=== PATIENT | male | born 1980 | race Caucasian/White ===

== ENCOUNTER 2016-06-26 00:08 | Emergency (ER) | payer SELFPAY ==
[~2016-06-26] VITALS: Ht 170.2 cm; Wt 65.2 kg
[2016-06-26] MEDS ORDERED: ED- ACETAMINOHEN/CODEINE 300MG/30 MG (TYLENOL #3) 6 TABLETS/BTL PO ONE (00:45)
[2016-06-26] MEDS ORDERED: CEPHALEXIN 500 MG (KEFLEX) CAPSULE PO ONE (00:50)
[2016-06-26 01:02] VITALS: BP 115/78
== END 2016-06-26 00:55 | disposition home or self-care (01) ==
LOC: ED 00:09
DX: L02.413 Cutaneous abscess of right upper limb (principal)
CPT/HCPCS: 10060; 87070; 87075; 99283

== ENCOUNTER 2016-07-02 20:29 | Observation (INO) | payer SELFPAY ==
[~2016-07-02] VITALS: Ht 170.2 cm; Wt 65.0 kg
[2016-07-02] MEDS ORDERED: SODIUM CHLORIDE FLUSH 3 ML SYR IV PRN (21:10)
[2016-07-02] MEDS ORDERED: SODIUM CHLORIDE FLUSH 10 ML SYR IV PRN (21:10)
[2016-07-02 21:29] LABS: BASOPHILS % (AUTO) 0 % (0-2); EOSINOPHILS # (AUTO) 0.2 10^3uL; EOSINOPHILS % (AUTO) 1 % (0-4); LYMPHOCYTES # (AUTO) 2.5 X10^3; MEAN CORPUSCULAR HEMOGLOBIN 30.5 PG (26.0-34.0); MEAN CORPUSCULAR VOLUME 82 FL (80-100); MEAN PLATELET VOLUME 11.1 FL (6.0-9.5); MONOCYTES % (AUTO) 8 % (3-11); NEUTROPHILS # (AUTO) 9.2 X10^3; NEUTROPHILS % (AUTO) 71 % (51-67); PLATELET COUNT 367 10^3uL (150-450); WHITE BLOOD COUNT 12.85 10^3uL (4.0-11.0)
--- NOTE | 2016-07-02 21:40 | NUR ---
Patient refuses any IV fluids or meds unless he can something to "fucking eat". Dr. Niño informed and goes in to talk with patient.
[2016-07-02 21:42] LABS: ANION GAP 14.5 MEQ/L (3-15); MEAN CORPUSCULAR HGB CONC 37.3 g/dL (31.0-37.0)
[2016-07-02 21:43] LABS: ALBUMIN 4.4 g/dL (3.4-5.0); CALCULATED IONIZED CALCIUM 3.9 mg/dL (3.8-4.6); TOTAL PROTEIN 8.3 g/dL (6.4-8.5)
--- NOTE | 2016-07-02 21:50 | NUR ---
Patient has agreed to IVF if provided with food. Dr. Renay granado pt having food. [employer] notified and will bring [employer] [employer].
--- NOTE | 2016-07-02 21:54 | NUR ---
Pt care now assumed by Norman Zapata RN
--- NOTE | 2016-07-02 22:30 | NUR ---
Pt. arrives to the Med Surg floor via wheelchair accompanied by ER/RN. Pt. is alert; orientated; conversational. NS infusing at right forearm without difficulty; resp are even and unlabored on room air. Admission process continues.
--- NOTE | 2016-07-02 22:33 | NUR ---
Pt unable to urinate before being transferred [facility]. Notified his nurse on Med/SurgMaria E.
--- NOTE | 2016-07-02 22:40 | NUR ---
Accucheck taken: 564.
--- NOTE | 2016-07-02 22:50 | NUR ---
Dr. Sloan here to see pt. Pt. states he "just didn't want to deal with it" when asked why he hasn't been taking his insulin. Pt. reports Jun.12 as the last time he used meth. Pt. becomes agitated when the subject of food is brought up; "If I'm not going to get food-then I'm leaving!" Pt. cussing and voice becoming louder; reassurance given. "I will walk if I get hungry and can't get food!" Physician leaves room to allow pt. to calm down.
--- NOTE | 2016-07-02 23:00 | NUR ---
Aunt arrives from ER; pt. justinesing; reassurance given by this nurse and Aunt.
[2016-07-02] MEDS ORDERED: DEXTROSE 50% 25 GM/50 ML SYRINGE IV PRN ×2 (23:10)
[2016-07-02] MEDS ORDERED: ACETAMINOPHEN 325 MG TAB (TYLENOL) PO PRN (23:10)
[2016-07-02] MEDS ORDERED: ONDANSETRON 4 MG (ZOFRAN) ORAL DISSOLVE TAB PO PRN (23:10)
[2016-07-02] MEDS ORDERED: POTASSIUM CL IVPB 50 ML IV PRN (23:10)
[2016-07-02] MEDS ORDERED: GLUCAGON EMERGENCY 1 MG/KIT IM PRN (23:10)
[2016-07-02] MEDS: INSULIN LISPRO 1 UNIT/0.01 ML (HUMALOG) DOSE SC SCH (23:10)
[2016-07-02] MEDS ORDERED: POLYETHYLENE GLYCOL 17 GM (MIRALAX) PACKET PO PRN (23:10)
[2016-07-02] MEDS ORDERED: DEXTROSE ORAL GEL (GLUTOSE 40%) 15 GM TUBE PO PRN (23:10)
[2016-07-02] MEDS ORDERED: INSULIN LISPRO 1 UNIT/0.01 ML (HUMALOG) DOSE SC ONE ×2 (23:15→23:17)
--- NOTE | 2016-07-02 23:15 | NUR ---
NS bolus currently infusing at right forearm without difficulty.
--- NOTE | 2016-07-02 23:20 | NUR ---
Humalog 10 units given per physician order. Pt. watching tv; appears calmer.
--- NOTE | 2016-07-02 23:35 | NUR ---
UA obtained and taken downstairs to lab.
[2016-07-02 23:36] LABS: BILIRUBIN,URINE Negative (Negative); CLARITY,URINE Clear; COLOR,URINE Yellow; GLUCOSE, URINE (UA) 3+ (Negative); LEUKOCYTE ESTERASE ,URINE Negative (Negative); UROBILINOGEN,URINE 0.2 mg/dL (0.2-1.0)
--- NOTE | 2016-07-02 23:45 | NUR ---
Pt. becoming calmer; given much reassurance.
--- NOTE | 2016-07-02 23:46 | NUR ---
Nicotine patch applied to left upper arm/21 mg; pt. requests patch applied tonight and not in the A.M. Yellow gown and socks on for safety; telemetry applied at this time.
[2016-07-03] VITALS (7 sets, daily range): BP systolic 108–127; BP diastolic 67–82
[2016-07-03 00:23] LABS: AMPHETAMINE SCREEN, URINE Positive (Negative); CANNABINOID SCREEN, URINE Negative (Negative); METHAMPHETAMINE SCREEN URINE S POSITIVE (NEGATIVE); OPIATE SCREEN URINE Negative (Negative); PROPOXYPHENE STAT NEGATIVE (NEGATIVE)
[2016-07-03 00:27] LABS: MAGNESIUM* 1.6 mg/dL (1.6-2.3); PHOSPHORUS 4.5 mg/dL (2.4-4.9)
--- NOTE | 2016-07-03 00:30 | NUR ---
Accucheck taken: 552.
[2016-07-03] MEDS ORDERED: INSULIN LISPRO 1 UNIT/0.01 ML (HUMALOG) DOSE SC ONE ×5 (00:45→14:25)
--- NOTE | 2016-07-03 00:50 | NUR ---
Humalog 12 units given; pt. resting soundly on right side; resp are even and unlabored on room air; NS infusing at 250 cc's without difficulty; appears to be in no distress.
--- NOTE | 2016-07-03 01:10 | NUR ---
Tylenol 650 mg PO given for pain. Pt. agitated; "This won't do a damn bit of good-nobody listens to me-I take this at home and it doesn't do anything". Pt.'s statement punctuated with cuss words.
--- NOTE | 2016-07-03 01:15 | NUR ---
Pt. yelling; hollering obscenities; "I'm leaving right now if I don't get food!" Inspector Hairspring/Sarai in room to take AMA papers to pt. Pt. reads AMA papers then throws clipboard across the room. Pt. then lays back down; cussing continually; states "Nobody is doing anything for me around here!"
--- NOTE | 2016-07-03 02:15 | NUR ---
Ibuprofen 600 mg PO q [address] ordered by Dr[address] Sloan. Update given on pt. status.
--- NOTE | 2016-07-03 02:20 | NUR ---
Humalog 12 units given for accucheck of 355.
[2016-07-03] MEDS: IBUPROFEN 600 MG (MOTRIN) TAB PO SCH ×2 (02:29→13:05)
--- NOTE | 2016-07-03 02:29 | NUR ---
Ibuprofen 600 mg PO given for right upper arm pain from 'cyst'; rated 8. Pt. continues to ask to eat; cusses; threatens to go home. Much reassurance given by staff and this nurse.
--- NOTE | 2016-07-03 02:36 | NUR ---
IV tubing disconnected as pt. requests to take a shower. IV site covered with plastic wrap; telemetry removed; pt. appears to be somewhat calmer.
--- NOTE | 2016-07-03 02:45 | NUR ---
New orders from Dr. Sloan: When blood glucose is less than 250, give Lantus 20 units. Pt. may then eat diabetic diet one hour later. Check blood glucose every two hours after that until it is less than 250 x 2. Then go to regular schedule and continue sliding scale.
--- NOTE | 2016-07-03 02:55 | NUR ---
Pt. back from shower; IV reconnected & secured with coban; infusing without problems. Pt. appears fatigued; states, "I can't get to sleep here; I want to eat!" Physician orders relayed to pt. for reference. Pt. resting on left side; resp are even and unlabored on room air. Call light within reach.
[2016-07-03] MEDS ORDERED: INSULIN GLARGINE 1 UNIT/0.01ML (LANTUS) DOSE SC ONE (03:10)
--- NOTE | 2016-07-03 03:13 | NUR ---
Lantus 20 units given for glucose level of 214. Pt. wants to eat now; orders explained to pt.; pt. agitated; reassurance given.
[2016-07-03 03:37] LABS: ALBUMIN 3.9 g/dL (3.4-5.0); CALCULATED IONIZED CALCIUM 3.9 mg/dL (3.8-4.6); TOTAL PROTEIN 7.5 g/dL (6.4-8.5)
--- NOTE | 2016-07-03 04:10 | NUR ---
Pt. eating diabetic lunch tray provided by Safety Administrator/Sarai. Pt. cooperative currently.
--- NOTE | 2016-07-03 04:35 | NUR ---
Pt. states, "My anxiety is kicking in!" This nurse checks with ICU for current telemetry: Sinus rhythm in the 70's. HOB elevated since pt. ate large amount of food very quickly; deep breaths encouraged; reassurance given. H2O replenished; call light within reach.
--- NOTE | 2016-07-03 05:08 | NUR ---
Humalog 4 units given for accucheck of 236.
[2016-07-03 06:30] LABS: MAGNESIUM* 1.8 mg/dL (1.6-2.3); PHOSPHORUS 4.3 mg/dL (2.4-4.9)
--- NOTE | 2016-07-03 06:30 | NUR ---
Pt. resting quietly; resp are even and unlabored on room air; IVF infusing at 250 cc/hr; pt. appears to be in no distress. Telemetry reflects sinus rhythm. Call light and H2O within reach.
[2016-07-03] MEDS ORDERED: PANTOPRAZOLE 40 MG (PROTONIX) TAB PO SCH (07:00)
[2016-07-03 07:09] LABS: ALBUMIN 3.1 g/dL (3.4-5.0); TOTAL PROTEIN 6.3 g/dL (6.4-8.5)
[2016-07-03] MEDS: INSULIN LISPRO 1 UNIT/0.01 ML (HUMALOG) DOSE SC SCH ×2 (07:30→11:30)
[2016-07-03] MEDS ORDERED: NICOTINE 21 MG (NICODERM) PATCH TD SCH ×2 (09:00→23:00)
[2016-07-03] MEDS ORDERED: POTASSIUM CHLORIDE ER 20 MEQ TABLET PO ONE (10:00)
[2016-07-03] MEDS ORDERED: MAGNESIUM OXIDE 400 MG (MAG-OX) TAB PO SCH (10:41)
--- NOTE | 2016-07-03 12:33 | NUR ---
SSI SCHEDULE CHANGED TO 2 HR PP & HS, WILL MODIFY ORDER IF DR VÁSQUEZ DOES NOT, THIS WAS CLARIFIED WITH DR. VÁSQUEZ.
--- NOTE | 2016-07-03 14:05 | NUR ---
2 HR PC BS= 455, DR. VÁSQUEZ NOTIFIED, ORDERS 12 UNITS HUMALOG NOW AND TEXT ORDER STS "CAN CHANGE PARAMETERS. GIVE 12u UP TO 500.
--- NOTE | 2016-07-03 14:33 | NUR ---
1400 bs Addendum: 07/03/16 at 1436 by Dede Cordero RN 1400 BS = 455mg/dL, DR. VÁSQUEZ NOTIFIED, ORDER RECEIVED FOR 12 UNITS HUMALOG IF BS UP TO 500. 12 UNITS HUMALOG ADMIN, WILL RE-CHECK IN 1 HOUR.
[2016-07-03 15:57] LABS: ALBUMIN 3.4 g/dL (3.4-5.0); ANION GAP 11.9 MEQ/L (3-15); CALCULATED IONIZED CALCIUM 3.8 mg/dL (3.8-4.6); TOTAL PROTEIN 6.5 g/dL (6.4-8.5)
--- NOTE | 2016-07-03 16:07 | NUR ---
RE-CHECK BS = 391, DR. VÁSQUEZ NOTIFIED, PT STS HE DOES NOT RECALL WHAT HIS SHORT-ACTING INSULIN DOSE WAS AT HOME, THIS WAS REPORTED TO DR. VÁSQUEZ, ORDERS RECEIVED TO GIVE HUMALOG 8 UNITS WITH MEALS AND CONT SSI 2H PC & HS. THIS WAS DISCUSSED WITH DINA IN PHARMACY.
--- NOTE | 2016-07-03 16:30 | NUR ---
THIS NURSE IN TO PT'S ROOM TO ASK IF HE WOULD LIKE TYLENOL FOR CYST PAIN. PT BEGINS YELLING THAT IT WILL NOT HELP AND THAT HE CAN "HURT AT HOME", PT THEN BEGINS YELLING THAT HE IS HE IS HUNGRY & WE ARE NOT FEEDING HIM. THIS NURSE ATTEMPTS TO EDUCATE PT ON RATIONAL FOR NON-NARCOTIC PAIN MEDS AND RATIONAL FOR BLOOD SUGAR CONTROL THRU DIET IN AN ATTEMPT TO DECREASE INSULIN USE; THIS ANGERS PT MORE AND HE BEGINS TO USE PROFANE LANGUAGE AND BECOME RESTLESS IN BED. HE STS HE WANTS TO GET OUT OF HERE AND AGREES TO SIGN THE AMA FORM;WHEN THIS NURSE RETURNS TO ROOM WITH AMA FORM PT STS HE IS WAITING TO HEAR BACK FROM HIS AUNT WHO WILL BE THE ONE TAKING HIM HOME.
[2016-07-03] MEDS ORDERED: INSULIN LISPRO 1 UNIT/0.01 ML (HUMALOG) DOSE SC SCH ×2 (18:00→19:00)
--- NOTE | 2016-07-03 18:05 | NUR ---
PT'S AUNT HERE, WILL WAIT FOR PT'S DECISION.
--- NOTE | 2016-07-03 18:11 | NUR ---
PT C/O CYST ON HIS ARM AND LEGS, STS THEY ARE CAUSING HIM PAIN, PT REFUSING TYLENOL & IBUPROFEN WHEN OFFERED, DR. VÁSQUEZ AWARE, NOTIFIED AGAIN.
--- NOTE | 2016-07-03 18:33 | NUR ---
PT'S AUNT MEETS THIS NURSE IN [facility], STS "HE'S READY TO SIGN THE PAPER", THIS NURSE IN TO ROOM, PT ASKED IF HE WOULD LIKE TO READ THE FORM, HE STS HE READ IT LAST NIGHT AND THAT HE DOES NOT NEED TO READ IT AGAIN, PT INFORMED WE WOULD CONTINUE TO MONITOR & TREAT BLOOD SUGARS, ASKED IF HE WILL BE ABLE TO DO THIS AT HOME, HE STS "YES I WILL". PT'S AUNT STS "HE'S DIABETIC, HE SHOULD BE GETTING WAY MORE THAN SALTINE CRACKERS", THIS NURSE INFORMS AUNT THAT PT HAS RECEIVED 3 FULL MEALS TODAY WELL SNACKS WHICH PT STS HAVE BEEN ONLY CRACKERS, THIS PT GETS ANGRY AND BEGINS TO RAISE HIS VOICE AT THIS TIME, THIS NURSE INFORMED AUNT PT HAS RECEIVED MORE THAN CRACKERS FOR SNACKS AND SHE STS "YES BUT HIS SUGARS HAVE BEEN GOING UP AND DOWN AND THEY SHOULDN'T", THIS NURSE CLARIFIES THAT IT IS NORMAL FOR BLOOD SUGARS TO GO UP & DOWN UNTIL BLOOD SUGAR LEVELS ARE IN CONTROL AND THAT STAYING IN THE HOSPITAL ALLOWS MONITORING & TREATING OF BLOOD SUGARS. PT DECLINES ASSIST/ESCORT, DECLINES W/C.
--- NOTE | 2016-07-03 18:44 | NUR ---
PT DEPARTS DEPT AMB, ACCOMPANIED BY AUNT, PTIS WEARING HIS OWN CLOTHING AND HAS HIS CELL PHONE & SHIFT SUPERVISOR MELTING WHICH ARE HIS ONLY BELONGINGS.
[2016-07-03] MEDS ORDERED: INSULIN GLARGINE 1 UNIT/0.01ML (LANTUS) DOSE SC SCH ×2 (21:00)
[2016-07-03] MEDS ORDERED: NICOTINE PATCH REMOVAL TOP SCH (22:59)
== END 2016-07-03 18:45 | disposition left against medical advice (07) ==
LOC: ED 20:30 → INTOOBSV 22:05 → MED/SURG 22:05
PROVIDERS: ADMIT Pediatrics; ATTEND Pediatrics
DX: E10.65 Type 1 diabetes mellitus with hyperglycemia (principal); E86.0 Dehydration; R11.0 Nausea; D72.829 Elevated white blood cell count, unspecified; E87.6 Hypokalemia; E83.42 Hypomagnesemia; F15.10 Other stimulant abuse, uncomplicated; E72.51 Non-ketotic hyperglycinemia; I25.10 Atherosclerotic heart disease of native coronary artery without angina pectoris; Z91.14 Patient's other noncompliance with medication regimen; Z86.14 Personal history of Methicillin resistant Staphylococcus aureus infection; F17.200 Nicotine dependence, unspecified, uncomplicated
CPT/HCPCS: 36415; 80053; 80307; 81003; 82150; 83036; 83690; 83735; 83930; 84100; 85025; 96360; 99283; J1815; J7030

== ENCOUNTER 2016-07-27 04:33 | Emergency (ER) | payer SELFPAY ==
[~2016-07-27] VITALS: Ht 170.2 cm; Wt 64.3 kg
[2016-07-27] MEDS ORDERED: HYDROcodone/APAP 5 MG/325 MG (NORCO) TAB PO ONE (05:00)
[2016-07-27] MEDS ORDERED: CLINDAMYCIN 150 MG (CLEOCIN) CAP PO ONE (05:00)
--- NOTE | 2016-07-27 05:10 | NUR ---
LIST OF DENTAL CLINIC (LOW COST) GIVEN TO PT
--- NOTE | 2016-07-27 05:11 | NUR ---
PAIN REASMT ON LORTAB NOT DONE PT LEFT PRIOR TO ASMT TIME DUE
[2016-07-27 05:16] VITALS: BP 132/87
== END 2016-07-27 05:17 | disposition home or self-care (01) ==
LOC: ED 04:34
DX: K02.9 Dental caries, unspecified (principal)
CPT/HCPCS: 99282; 99283

== ENCOUNTER 2016-08-07 20:40 | Emergency (ER) | payer SELFPAY ==
[~2016-08-07] VITALS: Ht 170.2 cm; Wt 68.0 kg
[~2016-08-07 20:40] MED LIST: ACET1TAB43 PO; ACHYD1T PO; CEPH-331 PO; CEPH-507 PO; CLIN-78 PO; CLIN-79 PO; HUM100VI12 SC; HYDR-33 PO; HYDR-3702 PO; HYDR-3811 PO; IBP200T PO; INSU100V13 IJ; INSU100V2 SC; INSU100V8 SC; KETO10TA PO; LD5PT TOP; MPR22TI TOP; NPH SQ; SULF1TAB35 PO; SYRI-259 MC; TESTSTRIPS MC
--- OUTSIDE RECORDS SUMMARY | 2016-08-07 20:46 | XMS REPORT | Continuity of Care Document ---
Author Author Becka Jovel Address Unknown Phone Unavailable Care Team Providers Care Director Of Safety Name Role Phone [employer] Unavailable Unavailable Problems Problem Status Onset Date Classification Date Reported Comments Source No data available for this section Problem 01/11/2015 [facility] Medications Medication Details Route Status Patient Instructions Ordering Provider Order Date Source No Known Medications No known medications Active [facility] Allergies, Adverse Reactions, Alerts Substance Category Reaction Severity Reaction type Status Date Reported Comments Source [facility]. Immunizations Immunization Date Given Site Status Last Updated Comments Source No data available for this section No data available for this section [facility] Results Order Name Results Value Reference Range Date Interpretation Comments Source ED Note - Provider ED Note - Provider Patient: KARIN JAMES Age: 34 years Sex: Male : [birth year] Associated Diagnoses: None Author: Nate Rivera Basic Information History source: Patient. Additional information: Chief Complaint from Nursing Triage Note : Chief Complaint 01/13/15 15:55 Chief Complaint Pt c/o migrane CID x several days. . History of Present Illness Pt is a 34 year old male with a history of DMI who presents with headache x2 weeks. Pt stated headache is bilateral and occipita radiating into the neck. It has been gradual in onset and constant, currently rated a 10/10 pain. Pt complains of photophobia and phonophobia. No history of contacts with similar symptoms, stated tried ibuprofen with minimal relief. Review of Systems Constitutional symptoms: No fever, no chills. Skin symptoms: No jaundice, no rash. Eye symptoms: No recent vision problems, no pain. ENMT symptoms: No sore throat, no nasal congestion. Respiratory symptoms: No shortness of breath, no cough. Cardiovascular symptoms: No chest pain, no palpitations. Gastrointestinal symptoms: No abdominal pain, no nausea, no vomiting, no diarrhea, no constipation. Genitourinary symptoms: No dysuria, no discharge. Musculoskeletal symptoms: No back pain, Neurologic symptoms: Headache, dizziness. Health Status Allergies: Allergic Reactions (Selected) Severity Not Documented Amoxicillin- No reactions were documented. Penicillins- No reactions were documented. TraMADol- No reactions were documented.. Medications: (Selected) Prescriptions Prescribed ED ONLY ibuprofen 800 mg oral tablet: 1 tab, PO, TID, With food, 20 tab, 0 Refill(s) ED ONLY ibuprofen 800 mg oral tablet: 1 tab, PO, TID, With food, 20 tab, 0 Refill(s) Novolin N human recombinant 100 unit(s)/ml subcutaneous injection: 20 Units, 0.2 mL, Subcutaneous, BIDAC, 12 mL, 5 Refill(s) Novolin R human recombinant 100 unit(s)/ml injectable injection: 15 Units, 0.15 mL, Subcutaneous, TIDAC, 13.5 mL, 5 Refill(s). Past Medical/ Family/ Social History Medical history Endocrine: diabetes type 1. Surgical history: Appendectomy. Family history: Not relevant to the current condition. Social history: Pt admits to half pack a day tobacco use Denies etoh, illicit drug use.. Problem list: All Problems History of insulin dependent diabetes mellitus / SNOMED CT 169716602 / Confirmed Hx of appendectomy / SNOMED CT 5680826224 / Confirmed Overweight / ICD-9-CM 278.02 / Confirmed Added based on documentation of BMI=25.2. Pancreatitis / SNOMED CT 200364573 / Confirmed. Physical Examination Vital Signs Vital Signs 01/13/15 15:55 Temperature Route Oral Temperature Oral 98.1 DegF Heart Rate 69 bpm Resp. Rate 20 BRMIN Systolic BP 122 mmHg Diastolic BP 75 mmHg Oxygen Saturation 97 % Oxygen Therapy Room air . Weights and Measurements 01/13/15 15:55 Weight 73 kg Height 170 cm Body Mass Index 25.3 kg/m2 Weight Obtained Stated Weight . Oxygen Saturation 01/13/15 15:55 Oxygen Saturation 97 % . General: Alert, no acute distress. Skin: Warm, dry, pink. Head: Normocephalic, atraumatic. Neck: Supple, trachea midline. Eye: Pupils are equal, round and reactive to light, extraocular movements are intact, normal conjunctiva. Ears, nose, mouth and throat: Oral mucosa moist, no pharyngeal erythema or exudate. Cardiovascular: Regular rate and rhythm, No murmur, Normal peripheral perfusion , No edema. Respiratory: Lungs are clear to auscultation, respirations are non-labored, breath sounds are equal, Symmetrical chest wall expansion. Gastrointestinal: Soft, Nontender, Non distended, Normal bowel sounds. Neurological: Alert and oriented to person, place, time, and situation, No focal neurological deficit observed, CN II-XII intact, normal sensory observed, normal motor observed, normal speech observed, normal coordination observed. Medical Decision Making Orders Launch Order Profile (pull in existing orders) (Selected) Inpatient Orders Ordered Compazine: 10 mg, 2 mL, IVPush, ONCE Normal Saline bolus: 1,000 mL, 4000 ml/hr, IVPB, ONCE Toradol: 30 mg, 1 mL, IVPush, ONCE diphenhydramine: 50 mg, 1 mL, IVPush, ONCE. Reexamination/ Reevaluation Time: 01/13/15 17:15:00 . Vital signs results included from flowsheet : Vital Signs 01/13/15 17:09 Heart Rate 78 bpm Resp. Rate 18 BRMIN Systolic BP 121 mmHg Diastolic BP 76 mmHg Mean Arterial Pressure 91 mmHg Oxygen Saturation 98 % Oxygen Therapy Room air Notes: Pt headache has resolved. Discussed plan to DC and stressed importance of follow up with PCP. Impression and Plan Diagnosis Headache 784.0 (ICD9 784.0) Plan Condition: Stable. Disposition: Discharged: ED Discharge(01/13/15 17:54:00, Home), to home. Patient was given the following educational materials: Migraine Headache. Follow up with: Follow up with primary care provider Within 1 week You were seen in the emergency department for a headache. Your headache was controlled on IV medications and it is likely that your headache is a migraine headache. It is important for you to follow up with a primary care provider regarding your headaches so that that can be controlled. Please follow up within a week. Please return to the emergency department if You have a fever. You have vision loss. You have muscular weakness or loss of muscle control. You start losing your balance or have trouble walking. You feel faint or pass out. You have severe symptoms that are different from your first symptoms. . Counseled: Patient, Regarding diagnosis, Regarding diagnostic results, Regarding treatment plan, Regarding prescription, Patient indicated understanding of instructions. Attending Attestation Teaching-Supervisory Addendum I participated in the following activities of this patient's care: the medical history, the physical exam, medical decision making. I personally performed: supervision of the patient's care, the medical history, the physical exam, the medical decision making. The case was discussed with: the resident. Results interpretation: I agree with the study interpretation in this patient's care, I agree with the documentation of the study interpretation. Attending HPI persistent headache for 2 weeks. gradual onset bilat, frontal. no fever, n/v/ d. endorses photophobia, no trouble with speech gait. long standing history of migraines. [facility]. no chronic migraine meds. Attending Physical Exam Vital Signs Vital Signs 01/13/15 15:55 Temperature Route Oral Temperature Oral 98.1 DegF Heart Rate 69 bpm Resp. Rate 20 BRMIN Systolic BP 122 mmHg Diastolic BP 75 mmHg Oxygen Saturation 97 % Oxygen Therapy Room air . Weights and Measurements 01/13/15 15:55 Weight 73 kg Height 170 cm Body Mass Index 25.3 kg/m2 Weight Obtained Stated Weight . Oxygen Saturation 01/13/15 15:55 Oxygen Saturation 97 % . General: Alert, no acute distress, speaks loud, moves about cart in no distress.. Skin: Warm, dry, no rash. Head: Normocephalic, atraumatic. Neck: Supple, trachea midline, no tenderness, no JVD. Eye: Pupils are equal, round and reactive to light, extraocular movements are intact, normal conjunctiva. Ears, nose, mouth and throat: Oral mucosa moist. Cardiovascular: Regular rate and rhythm, No murmur, Normal peripheral perfusion , No edema. Respiratory: Lungs are clear to auscultation, respirations are non-labored, breath sounds are equal, Symmetrical chest wall expansion. Gastrointestinal: Soft, Nontender. Back: Nontender, no step-offs. Musculoskeletal: No swelling, no deformity. Neurological: Alert and oriented to person, place, time, and situation, No focal neurological deficit observed, CN II-XII intact, normal sensory observed, normal motor observed, normal speech observed, normal coordination observed. Lymphatics: No lymphadenopathy. Attending Medical Decision Making Differential Diagnosis: discussed treatment and won't give narcotics to go with. has apparent ultram allergy, so ibuprofen and tylenol only. Attending Impression and Plan migraine headache Plan: return precautions, need to establish pcp discussed 01/13/2015 [facility] XR Hand 3 View Right [id number] XR Hand 3 View Right [id number] Name: KARIN JAMES Diagnostic Radiology Accession Number Exam Exam Date/Time Ordering Physician [id number] XR Hand 3 View Right 01/11/2015 20:23 CDT Yoan Hazel CPT code 59140 Reason For Exam (XR Hand 3 View Right) hand pain Report XR Hand 3 View Right [id number] Reason for exam: hand pain Comparison: None. Technique: 3 views of the right hand. Findings: No acute fracture. The joint spaces are maintained. Soft tissues are unremarkable. Impression: No acute fracture. Dr. Ced Blas and the staff radiologist have jointly reviewed and interpreted the above examination. Final Report Dictating Physician: Ced Blas Resident Physician: Ced Blas ELECTRONIC SIGNATURE Signed: 01.12.2015 08:42 Signed by: Sachin Cano M.D. Technologist: Mayra Condon(R)(CT),Pooja Rivers Erich 01/11/2015 [facility] XR Knee 3 Views Right [id number] XR Knee 3 Views Right [id number] Name: KARIN JAMES Diagnostic Radiology Accession Number Exam Exam Date/Time Ordering Physician [id number] XR Knee 3 Views Right 01/11/2015 20:23 CDT Yoan Hazel CPT code 10519 Reason For Exam (XR Knee 3 Views Right) knee pain Report Study: XR Knee 3 Views Right [id number] Reason for exam: knee pain Comparison: None. Technique: 3 views of the right knee were obtained. Findings: No acute fracture or dislocation. No radiopaque foreign bodies. Impression: No acute osseous abnormalities. Dr. Ced Blas and the staff radiologist have jointly reviewed and interpreted the above examination. Final Report Dictating Physician: Ced Blas Resident Physician: Ced Blas ELECTRONIC SIGNATURE Signed: 01.12.2015 08:42 Signed by: Sachin Cano M.D. Technologist: Mayra Condon RT(R)(CT),Pooja Rivers 01/11/2015 [facility] ED Note - Provider ED Note - Provider Patient: KARIN JAMES Age: 34 years Sex: Male : [birth year] Associated Diagnoses: None Author: Yoan Hazel Basic Information History source: Patient. Additional information: Chief Complaint from Nursing Triage Note : Chief Complaint 01/11/15 13:41 Chief Complaint pt states he lost his footing while going to lunch at [employer]. c/o right knee pain and right wrist pain. pulse/motor/sensation present. pt states he's only here ' because the staff made me come.' . History of Present Illness Mr Laura is a 34 yo male who presents from [facility] after a fall, going up the stairs and describes a mechanical fall vs knee. He states he fell on his right hand. Denies LOC, hitting head, or injury to other part of body. He is complaing of right knee and right hand pain. He denies being able to bear weight on his leg since the fall. Pt denies any numbness, tinglining in the hand or leg. Pt states he has had nothing for pain since the injury. Review of Systems Constitutional symptoms: No fever, no chills. Skin symptoms: Negative except as documented in HPI. Eye symptoms: Negative except as documented in HPI. ENMT symptoms: No sore throat, no nasal congestion. Respiratory symptoms: No shortness of breath, Cardiovascular symptoms: No chest pain, Gastrointestinal symptoms: No nausea, no vomiting. Genitourinary symptoms: Negative except as documented in HPI. Musculoskeletal symptoms: Negative except as documented in HPI. Neurologic symptoms: Headache, chronic migraines. Psychiatric symptoms: Negative except as documented in HPI. Health Status Allergies: Allergic Reactions (Selected) Severity Not Documented Amoxicillin- No reactions were documented. Penicillins- No reactions were documented. TraMADol- No reactions were documented.. Medications: (Selected) Prescriptions Prescribed ED ONLY ibuprofen 800 mg oral tablet: 1 tab, PO, TID, With food, 20 tab, 0 Refill(s) Novolin N human recombinant 100 unit(s)/ml subcutaneous injection: 20 Units, 0.2 mL, Subcutaneous, BIDAC, 12 mL, 5 Refill(s) Novolin R human recombinant 100 unit(s)/ml injectable injection: 15 Units, 0.15 mL, Subcutaneous, TIDAC, 13.5 mL, 5 Refill(s). Past Medical/ Family/ Social History Medical history Cardiovascular: no hypertension. Endocrine: diabetes type 1. Surgical history: Appendectomy, prior right thumb ext tendon repair. Social history: 4 cigs/day, denies drug or alcohol.. Physical Examination Vital Signs Vital Signs 01/11/15 13:41 Temperature Route Oral Temperature Oral 98.2 DegF Heart Rate 89 bpm Resp. Rate 16 BRMIN Systolic BP 133 mmHg Diastolic BP 72 mmHg Oxygen Saturation 97 % Oxygen Therapy Room air . General: Alert, no acute distress. Skin: Intact, normal for ethnicity. Head: Normocephalic, atraumatic. Neck: No tenderness. Eye: Normal conjunctiva. Ears, nose, mouth and throat: Oral mucosa moist. Cardiovascular: Regular rate and rhythm, No murmur. Respiratory: Lungs are clear to auscultation, respirations are non-labored. Gastrointestinal: Soft, Nontender, Non distended. Musculoskeletal: Normal ROM, normal strength, no swelling, no deformity, hand. snuff box tenderness. A/PROM and sensory intact., Lower extremity: Right, knee, tenderness, range of motion (normal, active, passive), neg lochmans, no swelling , no erythema, no deformity. Neurological: Alert and oriented to person, place, time, and situation, No focal neurological deficit observed. Medical Decision Making Documents reviewed: Emergency department records. Orders Launch Orders Pharmacy: [place] 325 mg-5 mg oral tablet (Order): 2 tab, PO, ONCE Radiology: XR Hand 3 View Right [id number] (Order): Stat, 01/11/15 20:10, hand pain, ED Location ed29, scaphoid view. XR Knee 3 Views Right [id number] (Order): Stat, 01/11/15 20:10, knee pain, ED Location ed29. Knee x-ray findings Within normal findings, no fracture. Radiology results: X-ray, right hand, interpretation: no acute fracture. Reexamination/ Reevaluation Time: 01/11/15 22:12:00 . Interventions: PowerOrders Patient Care: Wrist Splint Application (Order): 01/11/15 22:13, place thumb spica please . Time: 01/11/15 23:32:00 . Assessment: Attempted to page ortho resident (4 times in past 1.25 hrs without a response). Will place ortho follow up order and have patient call ortho clinic. ED return precautions in. Pt placed in splint. CMS intact. ibuprofen given for pain. . Interventions: PowerOrders Pharmacy: ibuprofen (Order): 800 mg, PO, ONCE Non-Net Orders: Clinic Consult Ortho ER Follow Up HH (Order): 01/11/2015, snuffbox tenderness, Future Order, Crystal Yueng Impression and Plan Knee pain (ICD9 719.46) Pain, wrist (ICD9 719.43) Plan Condition: Stable. Disposition: Discharged: ED Discharge(01/11/15 23:46:00, Home). Prescriptions: Med List/Prescriptions (Selected) Prescriptions Prescribe ED ONLY ibuprofen 800 mg oral tablet: 1 tab, PO, TID, With food, 20 tab, 0 Refill(s) . Patient was given the following educational materials: Knee Pain, Jupu-na-Hefd, Wrist Splint. Follow up with: [facility] You were seen in the ED for evaluation of knee and hand pain. There were no acute fractures however your hand was placed in a brace and needs to stay in this brace until you follow up with the orthopedic doctors in the next week or 2. You need to call the orthopedic clinic if you do not hear from them by tuesday of next week. You can take ibuprofen as needed for pain. Please see the instructions for splint care. Please return to the ED with an y new or worrisome symptoms. , [facility] You were seen in the ED for evaluation of knee and hand pain. There were no acute fractures however your hand was placed in a brace and needs to stay in this brace until you follow up with the orthopedic doctors in the next week or 2. You need to call the orthopedic clinic if you do not hear from them by tuesday of next week. You can take ibuprofen as needed for pain. Please see the instructions for splint care. Please return to the ED with an y new or worrisome symptoms.. Counseled: Patient, Regarding diagnosis, Regarding diagnostic results, Regarding treatment plan, Patient indicated understanding of instructions. Attending Attestation Teaching-Supervisory Addendum I participated in the following activities of this patient's care: the medical history, the physical exam, medical decision making. I personally performed: supervision of the patient's care, the medical history, the physical exam, the medical decision making. The case was discussed with: the resident. Resident documentation: I agree with the resident's documentation. Results interpretation: I agree with the study interpretation in this patient's care. Attending signature: Crystal Yeung 01/11/2015 [facility] Consultation Consultation Patient: KARIN JAMES Age: 34 years Sex: Male : [birth year] Associated Diagnoses: None Author: Destin Martinez Subjective C/o generalised weakness for 1 week. Patient is a known Type 1 Diabetic for the last 3 years,on therapy with Humalin-R 15U TIDAC and Humalin-N 20U BID.He ran out of his Insulin about 3 days ago and has not been using any anti- diabetic medications since.He complains of generalised weakness and polyuria for the last few days.Also mentions burning sensation and tingling in b/l feet for the last 1 week.No fever/visual disturbances/SOA. He was initially doagnosed with T1DM by a doctor [facility] at [facility] but has not followed up with him since September-October.He last filled his prescription in November at a clinic in [place], [place]. His average blood sugar levels with the above mentioned regime are 160-170. He does not remember his last HbA1c. Health Status Allergies: Allergic Reactions (Selected) Severity Not Documented Amoxicillin- No reactions were documented. Penicillins- No reactions were documented. TraMADol- No reactions were documented. Current medications: (Selected) Inpatient Medications Ordered Novolin N: 20 Units, 0.2 mL, Subcutaneous, BIDAC Novolin R: 15 Units, 0.15 mL, Subcutaneous, TIDAC Prescriptions Prescribed Novolin N human recombinant 100 unit(s)/ml subcutaneous injection: 20 Units, 0.2 mL, Subcutaneous, BIDAC, 12 mL, 5 Refill(s) Novolin R human recombinant 100 unit(s)/ml injectable injection: 15 Units, 0.15 mL, Subcutaneous, TIDAC, 13.5 mL, 5 Refill(s) Objective VS/Measurements Vitals Signs (last 24 hrs) Last Charted Minimum Maximum Temp 97.6 (JAN 09 23:31) 97.6 (JAN 09 23:31) 97.7 (JAN 09 17:26) SBP 132 (JAN 09 23:31) 132 (JAN 09 23:31) 135 ( JAN 09 17:26) DBP 76 (JAN 09 23:31) 76 (JAN 09 23:31) 79 (JAN 09 17:26) General: Alert and oriented.No pallor, icterus or edema Respiratory: Bilateral clear breath sounds heard Cardiovascular: S1 S2 heard.No murmurs Abdomen: Mild epigastric tenderness on palpation. No organomegaly/distension Neurological: Normal Sensory and Motor ex.Normal Power and tone. DTRs WNL. Results Review Last Vital Signs 01/09/15 23:32:12 Heart Rate 60 bpm Respiratory Rate 18 BRMIN 97.6 DegF BP Primary () 132/76 BP Optional () / Height 172.5 cm Weight 75 kg BMI 25.2 kg/m2 Last Lab Results BMP: (Date 01/09/15 ) Hematology Tests: (Date) Others: (Date) Lipid Profile: ( Date ) Sodium 131 mmol/L Hgb () TSH () Triglycerides Potassium 4.1 mmol/L HgbA1C () CPK () Cholesterol Phosphorus WBC () AST 11 /ALT 15 (01/09/15) HDL Magnesium PLT () Tropinin () LDL Creatinine 0.79 mg/dL INR () Albumin 4.3 (01/09/15) BUN 14 mg/dL Ur MAB/Cr () CrCl 129.49 ml/min Impression and Plan 1. Type 1 Diabetes Mellitus: - BS in ED>500 - Not been on insulin therapy for last 3 days - Will prescribe home Insulin regimen - Novolin-R 15U TIDAC - Novolin-N 20U BID - Patient advised to f/u with PCP his week. - Counselled on medicine compliance and diet Destin Martinez Internal Medicine PGY1 01/10/2015 [facility] ED Note - Provider ED Note - Provider Patient: KARIN JAMES Age: 34 years Sex: Male : [birth year] Associated Diagnoses: None Author: Nick Rhodes Basic Information History source: Patient. Arrival mode: Walking. History limitation: None. Additional information: Chief Complaint from Nursing Triage Note : Chief Complaint 01/09/15 17:26 Chief Complaint PT REPORTS HEAD PAIN. UPPER ABD PAIN. DIZZINESS. HAS BEEN WITHOUT INSULIN FOR 1 WEEK. . History of Present Illness 34 yo M presents with concern for generalized fatigue and weakness. He states that he is a IDDM and has been out of his insulin for 5 days. He reports continued problem with his chronic headaches - which he was seen here for yesterday, but did not tell the medical team at that time that he was a diabetic. Reports feeling progressive fatigue for the last two days. Normally takes 15 units with meals and 20 units of his long-acting BID. Reports nausea but no vomiting. No neuro or vision changes. Pt also has h/o pancreatitis and reports having chronic abdominal pain that is at his baseline at this time. Review of Systems Constitutional symptoms: No fever, no chills, no sweats, no weakness, no fatigue. Skin symptoms: No rash, no abrasions. Eye symptoms: No recent vision problems, no blurred vision. ENMT symptoms: No sore throat, no nasal congestion. Respiratory symptoms: No shortness of breath, no cough, no hemoptysis. Cardiovascular symptoms: No chest pain, no palpitations. Gastrointestinal symptoms: Negative except as documented in HPI. Genitourinary symptoms: No dysuria, no hematuria. Neurologic symptoms: No headache, no dizziness, no altered level of consciousness, no numbness, no tingling. Psychiatric symptoms: No anxiety, no depression. Hematologic/Lymphatic symptoms: Bleeding tendency negative, Additional review of systems information: All other systems reviewed and otherwise negative. Health Status Allergies: Allergic Reactions (Selected) Severity Not Documented Amoxicillin- No reactions were documented. Penicillins- No reactions were documented. TraMADol- No reactions were documented.. Past Medical/ Family/ Social History Medical history Endocrine: diabetes type 1. Gastrointestinal: pancreatitis. Neurological: migraine. Surgical history: Appendectomy. Family history: denies significant FHx. Social history: +tobacco. Denies etoh or illicit drug use.. Physical Examination Vital Signs Vital Signs 01/09/15 17:26 Temperature Route Oral Temperature Oral 97.7 DegF Heart Rate 76 bpm Resp. Rate 17 BRMIN Systolic BP 135 mmHg Diastolic BP 79 mmHg Oxygen Saturation 97 % Oxygen Therapy Room air 01/08/15 05:41 Temperature Oral 97.5 DegF Heart Rate 52 bpm LOW Resp. Rate 18 BRMIN Systolic BP 128 mmHg Diastolic BP 78 mmHg Mean Arterial Pressure 95 mmHg Oxygen Saturation 96 % Oxygen Therapy Room air . Weights and Measurements 01/09/15 17:26 Weight 75 kg Height 172.5 cm Body Mass Index 25.2 kg/m2 Weight Obtained Stated Weight . Oxygen Saturation 01/09/15 17:26 Oxygen Saturation 97 % 01/08/15 05:41 Oxygen Saturation 96 % . General: Alert, no acute distress. Skin: Warm, dry, intact. Head: Normocephalic, atraumatic. Neck: Supple, trachea midline. Eye: Pupils are equal, round and reactive to light, extraocular movements are intact, normal conjunctiva. Ears, nose, mouth and throat: Oral mucosa moist, no pharyngeal erythema or exudate. Cardiovascular: Regular rate and rhythm, No murmur. Respiratory: Lungs are clear to auscultation, respirations are non-labored, breath sounds are equal, Symmetrical chest wall expansion. Gastrointestinal: Soft, Non distended, Normal bowel sounds, Tenderness: Mild, epigastric, Guarding: Negative, Rebound: Negative. Musculoskeletal: Normal ROM, no tenderness, no swelling, no deformity. Neurological: Alert and oriented to person, place, time, and situation, No focal neurological deficit observed, CN II-XII intact, normal speech observed, Coordination: Bilateral, normal. Medical Decision Making Documents reviewed: Emergency department nurses' notes, emergency department records, prior records. Orders Launch Orders Laboratory: BMP (Order): Stat, 01/09/15 18:29, Blood, Nurse Collect, Launch Orders Pharmacy: Sodium Chloride 0.9% (Normal Saline bolus) (Modify): 2,000 mL, 8,000 ml/hr, IVPB , ONCE, Launch Orders Laboratory: Add On Lab (Order): Blood Routine, RT, 01/09/15 18:50, No Credit, 01/09/15 18: 51 Nick Rhodes, SR Log-in, [id number], Hold Until Collected, OE_DEFAULT_ FROM_FORM, 01/09/15 18:51, Liver Panel, Lipase level Pharmacy: morphine (Order): 5 mg, IVPush, ONCE, Launch Order Profile (pull in existing orders) (Selected) Inpatient Orders Ordered IV Peripheral Insertion: POC Glucose: POC UA: . Results review: Lab results : All Laboratory 01/09/15 22:16 Glucose POC 294 mg/dL SD 01/09/15 18:47 Sodium 131 mmol/L LOW Potassium 4.1 mmol/L Chloride 88 mmol/L LOW CO2 25 mmol/L Anion Gap 18 mmol/L Glucose 508 mg/dL CRIT BUN 14 mg/dL Creatinine 0.79 mg/dL LOW BUN/Creat Ratio 17.7 GFR -Swazi >90 mL/min/1.73m2 GFR Non -Swazi >90 mL/min/1.73m2 Calcium 9.9 mg/dL Osmo (Calc) 295 mOsm/kg Total Protein 7.7 g/dL Albumin 4.3 g/dL Globulin 3.4 g/dL HI Albumin/Globulin Ratio 1.3 Bilirubin Total 0.3 mg/dL Bilirubin Direct <0.2 mg/dL Bilirubin Indirect >0.1 mg/dL Alkaline Phosphatase 108 U/L HI AST 11 U/L LOW ALT 15 U/L Lipase 37 units/L 01/09/15 17:57 Urine Color POC Light yellow Urine Clarity POC Clear Urine Specific [place] POC 1.010 Urine pH POC 7.0 Urine Protein POC Negative mg/dL Urine Glucose POC 500 mg/dL Urine Ketones POC Negative mg/dL Urine Bilirubin POC Negative Urine Blood POC Negative Urine Urobilinogen POC 0.2 EU/dL Urine Nitrite POC Negative Urine Leukocyte Esterase POC Negative 01/09/15 17:25 Glucose POC >500 mg/dL CRIT , Lab results : All Laboratory 01/10/15 00:08 Glucose POC 229 mg/dL SD 01/09/15 22:16 Glucose POC 294 mg/dL HI . Reexamination/ Reevaluation Time: 01/09/15 21:57:00 . Interventions: PowerOrders Pharmacy: morphine (Order): 5 mg, IVPush, ONCE, PowerOrders Pharmacy: Sodium Chloride 0.9% (Normal Saline bolus) (Order): 1,000 mL, IVPB, ONCE. Notes: Patient's pain returning.. Time: 01/09/15 22:45:00 . Notes: Case discussed with Medicine RADHA who has agreed to consult and admit.. Time: 01/10/15 00:21:00 . Vital signs results included from flowsheet : Vital Signs 01/09/15 23:31 Temperature Oral 97.6 DegF Heart Rate 60 bpm Resp. Rate 18 BRMIN Systolic BP 132 mmHg Diastolic BP 76 mmHg Mean Arterial Pressure 95 mmHg Oxygen Saturation 95 % Oxygen Therapy Room air Notes: Medicine has seen and evaluated patient and provided prescriptions for insulin for him to take. Will dc home. Pt to f/u with [facility] as o/p. The patient expressed full understanding and is agreeable to this plan. Strict return precautions given.. Impression and Plan Diagnosis Headache 784.0 (ICD9 784.0) Hyperglycemia (ICD9 790.29) Calls-Consults - ED Consult(01/09/15 22:27:00, Internal Medicine). Plan Condition: Improved, Stable. Disposition: Discharged: ED Discharge(01/10/15 00:23:00, Home). Prescriptions: Med List/Prescriptions (Selected) Prescriptions Prescribed Novolin N human recombinant 100 unit(s)/ml subcutaneous injection: 20 Units, 0.2 mL, Subcutaneous, BIDAC, 12 mL, 5 Refill(s) Novolin R human recombinant 100 unit(s)/ml injectable injection: 15 Units, 0.15 mL, Subcutaneous, TIDAC, 13.5 mL, 5 Refill(s). Patient was given the following educational materials: Headache, FAQs, Hyperglycemia, Miak-cp-Udgr. Follow up with: [facility] You were seen here today for your headache and your high blood sugars. Please take the insulin as prescribed the Internal Medicine doctor. Follow-up with [facility] to establish care and return to the ED for any concerns, including but not limited to: chest pain, worsening headaches, vision changes, trouble breathing or other concerns.. Counseled: Patient, Regarding diagnosis, Regarding diagnostic results, Regarding treatment plan, Patient indicated understanding of instructions. Attending Attestation Teaching-Supervisory Addendum I participated in the following activities of this patient's care: the medical history, the physical exam, medical decision making. I personally performed: the medical history, the physical exam. The case was discussed with: the resident. Resident documentation: I agree with the resident's documentation. Results interpretation: I agree with the documentation of the study interpretation. Notes: In brief, this is a 34 yo male here for generalized malaise, fatigue and concern about being out of his insulin for 5 days. [facility] and [facility]. He also still has mild CID, for which he was seen yesterday. Additinally, he has acute on chronic epigastric abd pain that started back up yesterday. vss, nad cv rrr, lung clear, abd soft, + ttp epigstric, norebound, a/p; Accucheck high, will check labs, IVF and reassess.. Attending signature: Mindi Abbasi 01/09/2015 [facility] ED Note - Provider ED Note - Provider Patient: KARIN JAMES Age: 34 years Sex: Male : 84 Associated Diagnoses: None Author: Jackie Gorman Basic Information Additional information: Chief Complaint from Nursing Triage Note : Chief Complaint 01/07/15 20:52 Chief Complaint Chief Complaint . History of Present Illness 34yo male with reported h/o migraines presents c/o headache x5 days. Describes headahce as occipital throbbing pains, associated with photophobia and phonophobia, improves wiht rest. Denies head trauma, fevers, neck pain, N/V. Review of Systems Constitutional symptoms: No fever, no chills. Skin symptoms: No rash, Eye symptoms: No pain, no diplopia, no blurred vision. ENMT symptoms: No ear pain, Respiratory symptoms: No shortness of breath, no cough. Cardiovascular symptoms: No chest pain, Gastrointestinal symptoms: No abdominal pain, no nausea, no vomiting. Genitourinary symptoms: No dysuria, Musculoskeletal symptoms: No back pain, no Muscle pain. Neurologic symptoms: Headache, no dizziness, no altered level of consciousness , no numbness, no tingling, no weakness. Health Status Allergies: Allergic Reactions (Selected) Severity Not Documented Amoxicillin- No reactions were documented. Penicillins- No reactions were documented. TraMADol- No reactions were documented.. Past Medical/ Family/ Social History Medical history Neurological: migraine. Surgical history: Reviewed as documented in chart. Social history: +tobacco, denies ETOH or illicit drugs. Physical Examination Vital Signs Vital Signs 01/07/15 20:52 Temperature Route Oral Temperature Oral 98.2 DegF Heart Rate 86 bpm Resp. Rate 18 BRMIN Systolic BP 118 mmHg Diastolic BP 73 mmHg Oxygen Saturation 96 % Oxygen Therapy Room air . Weights and Measurements 01/07/15 20:52 Weight 68 kg Height 180 cm Body Mass Index 21 kg/m2 Weight Obtained Stated Weight . General: Alert, no acute distress. Skin: Warm, dry. Head: Normocephalic, atraumatic. Neck: Supple, trachea midline. Eye: Pupils are equal, round and reactive to light, extraocular movements are intact, normal conjunctiva. Ears, nose, mouth and throat: Oral mucosa moist, no pharyngeal erythema or exudate. Cardiovascular: Regular rate and rhythm, No murmur. Respiratory: Lungs are clear to auscultation, respirations are non-labored, breath sounds are equal. Chest wall: No tenderness. Musculoskeletal: Normal ROM, normal strength, no tenderness, no swelling, no deformity. Gastrointestinal: Soft, Nontender, Non distended. Neurological: Alert and oriented to person, place, time, and situation, No focal neurological deficit observed. Psychiatric: Cooperative. Medical Decision Making Orders Launch Orders Pharmacy: Toradol (Order): 30 mg, IVPush, ONCE Benadryl (Order): 50 mg, IVPush, ONCE Compazine (Order): 10 mg, IVPush, ONCE. Reexamination/ Reevaluation Time: 01/08/15 03:50:00 . Assessment: Headache improved but still present. Will give Imitrex and another liter of fluids. Time: 01/08/15 05:50:00 . Assessment: Headache much improved. Patient feels well enough for d/c home. Discussed treatment plan and return precautions with pt. All questions answered. Pt voiced agreement with plan. Will d/c home. Impression and Plan Diagnosis Migraine headache 346.90 (ICD9 346.90) Plan Condition: Improved, Stable. Disposition: Discharged: ED Discharge(01/08/15 06:08:00, Home). Patient was given the following educational materials: Headache, FAQs. Follow up with: Follow up with primary care provider You were seen in the ED for a headache. Your headache improved with medications. You are likely suffering from a migraine headache. You should try to rest in a quiet, dark space today. Be sure to drink plenty of water. Take tylenol or ibuprofen as needed for pain. Return to the ED if you have worsening pain, changes in your vision, weakness or numbness, or any new or concerning symptoms. Take care!. Counseled: Patient, Regarding diagnosis, Regarding diagnostic results, Regarding treatment plan, Patient indicated understanding of instructions. Jackie Gorman MD Emergency Medicine, PGY-2 Attending Attestation Teaching-Supervisory Addendum I participated in the following activities of this patient's care: the medical history, the physical exam, medical decision making. I personally performed: supervision of the patient's care, the medical history, the physical exam, the medical decision making. The case was discussed with: the resident: Jackie Gorman Resident documentation: I agree with the resident's documentation. Results interpretation: I agree with the study interpretation in this patient's care. Attending signature: Fran Marie. Attending Medical Decision Making Orders Launch Orders Diagnosis: *Level 3 ED Visit (Prof [id number]) (Order): 1, 01/07/15 20:17, Migraine headache 346.90, 01/08/15 06:17. 01/08/2015 [facility] Vital Signs Encounters Location Location Details Encounter Type Encounter Number Reason For Visit Attending Provider ADM Date DC Date Status Source [facility] [id number] Emergency [id number] DEMETRICE DEVINEBRITTANY 12/29/2013 Active [employer] [id number] Emergency [id number] Diana Junior 05/16/2014 05/16/2014 Active [employer] [id number] Emergency [id number] Pilo Longoria 06/17/2014 Active [employer] [id number] Emergency [id number] Yan Hannah 09/24/2014 09/25/2014 [facility] [id number] Emergency [id number] Yan Hannah 12/31/2014 01/01/2015 Active [employer] [id number] Emergency [id number] Alexx Marquez 01/06/2015 Active [employer] Procedures Procedure Code Date Perfomer Comments Source No data available for this section [employer]. Plan of Care Social History Assessment and Plan Family History Value Date Source Advance Directives Order Name Results Value Date Source
--- OUTSIDE RECORDS SUMMARY | 2016-08-07 20:46 | XMS REPORT | Continuity of Care Document ---
Author Author Becka Jovel Address Unknown Phone Unavailable Care Team Providers Care [employer] Crewmember Name Role Phone [employer] Unavailable Unavailable Problems Problem Status Onset Date Classification Date Reported Comments Source No data available for this section Problem 01/11/2015 [place] [facility] Medications Medication Details Route Status Patient Instructions Ordering Provider Order Date Source No Known Medications No known medications Active [place] [facility] Allergies, Adverse Reactions, Alerts Substance Category Reaction Severity Reaction type Status Date Reported Comments Source penicillins Assertion [facility] Tramadol Assertion seizures Drug allergy [facility]. Immunizations Immunization Date Given Site Status Last Updated Comments Source No data available for this section No data available for this section [facility] Results Order Name Results Value Reference Range [...] insulin dependent diabetes mellitus / SNOMED CT 061679108 / Confirmed Hx of appendectomy / SNOMED CT 3832296051 / Confirmed Overweight / ICD-9-CM 278.02 / Confirmed Added based on documentation of BMI=25.2. Pancreatitis / SNOMED CT 731288172 / Confirmed. Physical Examination Vital Signs Vital [...] precautions, need to establish pcp discussed 01/13/2015 [facility] XR Hand 3 View Right [id number] XR Hand 3 View Right [id number] Name: KARIN JAMES Diagnostic Radiology Accession Number Exam Exam Date/Time Ordering Physician [id number] XR Hand 3 View Right 01/11/2015 20:23 CDT Yoan Hazel CPT code 07203 Reason For Exam (XR Hand 3 View Right) hand pain Report XR Hand 3 View Right [id number] Reason for exam: hand pain Comparison: None. [...] M.D. Technologist: Mayra Condon(R)(CT),Pooja Rivers Erich 01/11/2015 [facility] XR Knee 3 Views Right [id number] XR Knee 3 Views Right [id number] Name: KARIN JAMES Diagnostic Radiology Accession Number Exam Exam Date/Time Ordering Physician [id number] XR Knee 3 Views Right 01/11/2015 20:23 CDT Yoan Hazel CPT code 02245 Reason For Exam (XR Knee 3 Views Right) knee pain Report Study: XR Knee 3 Views Right [id number] Reason for exam: knee pain Comparison: None. [...] M.D. Technologist: Mayra Condon RT(R)(CT),Pooja Rivers 01/11/2015 [facility] ED Note - Provider ED Note - Provider Patient: KARIN JAMES Age: 34 years Sex: Male : [birth year] Associated Diagnoses: None Author: Yoan Hazel Basic Information History source: Patient. Additional information: Chief Complaint from Nursing Triage Note : Chief Complaint 01/11/15 13:41 Chief Complaint pt states he lost his footing while going to lunch at [employer] c/o right knee pain and right wrist pain. pulse/motor/sensation present. pt states he's only here ' because the staff made me come.' . History of Present Illness Mr Laura is a 34 yo male who presents from [facility] [facility] after a fall, going up the stairs [...] Emergency department records. Orders Launch Orders Pharmacy: [facility] 325 mg-5 mg oral tablet (Order): 2 tab, PO, ONCE Radiology: XR Hand 3 View Right [id number] (Order): Stat, 01/11/15 20:10, hand pain, ED Location ed29, scaphoid view. XR Knee 3 Views Right [id number] (Order): Stat, 01/11/15 20:10, knee pain, ED [...] (Order): 01/11/2015, snuffbox tenderness, Future Order, Crystal Yeung Impression and Plan Knee pain (ICD9 719.46) Pain, wrist (ICD9 719.43) Plan Condition: Stable. Disposition: Discharged: ED Discharge(01/11/15 23:46:00, Home). Prescriptions: Med List/Prescriptions (Selected) Prescriptions Prescribe ED ONLY ibuprofen 800 mg oral tablet: 1 tab, PO, TID, With food, 20 tab, 0 Refill(s) . Patient was given the following educational materials: Knee Pain, Jxou-kz-Oifa, Wrist Splint. Follow up with: [facility] You were seen in [...] an y new or worrisome symptoms. , [facility] You were seen in [...] patient's care. Attending signature: Crystal Yeung 01/11/2015 [facility] Consultation Consultation Patient: KARIN JAMES Age: 34 [...] with T1DM by a doctor over at [facility] but has not followed up with him since September-October.He last filled his prescription in November at a clinic in [place], [place]. His average blood sugar levels with [...] diet Destin Martinez Internal Medicine PGY1 01/10/2015 [facility] ED Note - Provider ED Note - [...] 01/09/15 18: 51 Nick Rhodes, SR Log-in, [id number], Hold Until Collected, OE_DEFAULT_ FROM_FORM, 01/09/15 18:51, Liver Panel, Lipase level Pharmacy: morphine (Order): 5 mg, IVPush, ONCE, Launch Order Profile (pull in existing orders) (Selected) Inpatient Orders Ordered IV Peripheral Insertion: POC Glucose: POC UA: . Results review: Lab results : All Laboratory 01/09/15 22:16 Glucose POC 294 mg/dL [place] 01/09/15 18:47 Sodium 131 mmol/L LOW Potassium 4.1 mmol/L Chloride 88 mmol/L LOW CO2 25 mmol/L Anion Gap 18 mmol/L Glucose 508 mg/dL CRIT BUN 14 mg/dL Creatinine 0.79 mg/dL LOW BUN/Creat Ratio 17.7 GFR -Ecuadorean >90 mL/min/1.73m2 GFR Non -Ecuadorean >90 mL/min/1.73m2 Calcium 9.9 mg/dL Osmo (Calc) 295 mOsm/kg Total Protein 7.7 g/dL Albumin 4.3 g/dL Globulin 3.4 g/dL HI Albumin/Globulin Ratio 1.3 Bilirubin Total 0.3 mg/dL Bilirubin Direct <0.2 mg/dL Bilirubin Indirect >0.1 mg/dL Alkaline Phosphatase 108 U/L HI AST 11 U/L LOW ALT 15 U/L Lipase 37 units/L 01/09/15 17:57 Urine Color POC Light yellow Urine Clarity POC Clear Urine Specific [place] POC 1.010 Urine pH POC 7.0 Urine Protein POC Negative mg/dL Urine Glucose POC 500 mg/dL Urine Ketones POC Negative mg/dL Urine Bilirubin POC Negative Urine Blood POC Negative Urine Urobilinogen POC 0.2 EU/dL Urine Nitrite POC Negative Urine Leukocyte Esterase POC Negative 01/09/15 17:25 Glucose POC >500 mg/dL CRIT , Lab results : All Laboratory 01/10/15 00:08 Glucose POC 229 mg/dL [place] 01/09/15 22:16 Glucose POC 294 mg/dL HI [...] the following educational materials: Headache, FAQs, Hyperglycemia, Cvkq-pt-Xhel. Follow up with: [facility] You were seen here today for your headache and your high blood sugars. Please take the insulin as prescribed the Internal Medicine doctor. Follow-up with [facility] to establish care and return to the [...] and reassess.. Attending signature: Mindi Abbasi 01/09/2015 [facility] ED Note - Provider ED Note - [...] Orders Diagnosis: *Level 3 ED Visit (Prof [id number]) (Order): 1, 01/07/15 20:17, Migraine headache 346.90, 01/08/15 06:17. 01/08/2015 [facility] Vital Signs Encounters Location Location Details Encounter Type Encounter Number Reason For Visit Attending Provider ADM Date DC Date Status Source [facility] [id number] Emergency [id number] DEMETRICE DEVINEBRITTANY 12/29/2013 Active [facility] CD:[id number] Emergency [id number] Diana Junior 05/16/2014 05/16/2014 Active [facility] CD:[id number] Emergency [id number] Pilo Longoria 06/17/2014 Active [facility] CD:[id number] Emergency [id number] Yan Hannah 09/24/2014 09/25/2014 Active [employer] CD:[id number] Emergency [id number] Yan Hannah 12/31/2014 01/01/2015 Active [facility] [id number] Emergency [id number] Alexx Marquez 01/06/2015 Active [facility] Procedures Procedure Code Date Perfomer Comments Source No data available for this section [facility] Plan of Care Social History Assessment and Plan Family History Value Date Source Advance Directives Order Name Results Value Date Source
--- NOTE | 2016-08-07 20:54 | NUR ---
PT STATED HE IS SORE AND TIRED AND HE HURST WHEN ASKED WHERE HE IS IN PAIN AT HE SAID HIS HEAD AND MOUTH. SAID HE BROKE OFF A TOOTH ASKED WHICH ONE HE DAID I THINK IP IS THIS ONE AND POINTED TO UPPER LEFT MOLAR AREA RN LOOKED AND DOES NOT SEE ANY NEW BROKE OFF TEETH, HE STILL HAS THE ONE ON LOWER R THAT HE BROKE OFF THE . [facility]
--- NOTE | 2016-08-07 20:56 | NUR ---
STATED DID FINISH CLIAMYACIN ON TUE OR
[2016-08-07 21:44] LABS: BASOPHILS % (AUTO) 0 % (0-2); EOSINOPHILS # (AUTO) 0.1 10^3uL; EOSINOPHILS % (AUTO) 1 % (0-4); LYMPHOCYTES # (AUTO) 2.3 X10^3; MEAN CORPUSCULAR HEMOGLOBIN 29.9 PG (26.0-34.0); MEAN CORPUSCULAR VOLUME 83 FL (80-100); MEAN PLATELET VOLUME 11.2 FL (6.0-9.5); MONOCYTES # (AUTO) 0.6 X10^3; MONOCYTES % (AUTO) 8 % (3-11); NEUTROPHILS # (AUTO) 4.1 X10^3; NEUTROPHILS % (AUTO) 58 % (51-67); PLATELET COUNT 288 10^3uL (150-450); WHITE BLOOD COUNT 7.13 10^3uL (4.0-11.0)
[2016-08-07 21:45] LABS: MEAN CORPUSCULAR HGB CONC 35.9 g/dL (31.0-37.0)
--- NOTE | 2016-08-07 21:49 | NUR ---
PT CUSSING AND SAYING THAT IF WE ARE NOT GOING TO ADMIT HIM HE MAY WELL LEAVE. SAYS ITS NOTHING AGAINST US BUT HIS "FCKN TOOTH HURTS AND IF WE ARE NOT GOING TO ADMIT HIM THEN HE JUST MAY WELL GO HOME" EXPLAINED THAT WE NEEDED TO WAIT ON LAB AND SOON WE HAD THAT THEN THE DR WOULD KNOW MORE. PT SAID FINE I'LL JUST LAY DOWN AND HE DID.
[2016-08-07 21:56] LABS: BILIRUBIN,URINE Negative (Negative); CLARITY,URINE Clear; COLOR,URINE Yellow; GLUCOSE, URINE (UA) 2+ (Negative); LEUKOCYTE ESTERASE ,URINE Negative (Negative); PH,URINE 5.5 (5.0 - 8.0); UROBILINOGEN,URINE 0.2 mg/dL (0.2-1.0)
[2016-08-07 21:56] LABS: ALBUMIN 4.4 g/dL (3.4-5.0); ANION GAP 19.2 MEQ/L (3-15); CALCULATED IONIZED CALCIUM 3.8 mg/dL (3.8-4.6); TOTAL PROTEIN 7.5 g/dL (6.4-8.5)
[2016-08-07 22:06] LABS: AMPHETAMINE SCREEN, URINE Negative (Negative); CANNABINOID SCREEN, URINE Negative (Negative); METHAMPHETAMINE SCREEN URINE S POSITIVE (NEGATIVE); OPIATE SCREEN URINE Negative (Negative); PROPOXYPHENE STAT NEGATIVE (NEGATIVE)
[2016-08-07 22:19] VITALS: BP 139/86
== END 2016-08-07 22:21 | disposition left against medical advice (07) ==
LOC: ED 20:41
DX: R56.9 Unspecified convulsions (principal); E10.65 Type 1 diabetes mellitus with hyperglycemia; Z79.4 Long term (current) use of insulin
CPT/HCPCS: 36415; 80053; 80307; 81003; 85025; 99282

== ENCOUNTER 2016-09-09 19:32 | Emergency (ER) | payer SELFPAY ==
[~2016-09-09] VITALS: Ht 170.2 cm; Wt 70.5 kg
--- OUTSIDE RECORDS SUMMARY | 2016-09-09 19:35 | XMS REPORT | Continuity of Care Document ---
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 Medications Medication Details Route Status Patient Instructions Ordering Provider Order Date Source No Known Medications No known medications Active [facility] [facility]. Allergies, Adverse Reactions, Alerts Substance Category Reaction Severity Reaction type Status Date Reported Comments Source penicillins Assertion Drug allergy [facility]. Tramadol Assertion seizures Drug allergy [facility]. Immunizations Immunization Date Given Site Status Last Updated Comments Source No data available for this section No data available for this section [facility] Results Order Name Results Value Reference Range [...] insulin dependent diabetes mellitus / SNOMED CT 860244713 / Confirmed Hx of appendectomy / SNOMED CT 0305204453 / Confirmed Overweight / ICD-9-CM 278.02 / Confirmed Added based on documentation of BMI=25.2. Pancreatitis / SNOMED CT 132271504 / Confirmed. Physical Examination Vital Signs Vital [...] precautions, need to establish pcp discussed 01/13/2015 [facility] XR Hand 3 View Right [id number] XR Hand 3 View Right [id number] Name: KARIN JAMES Diagnostic Radiology Accession Number Exam Exam Date/Time Ordering Physician [id number] XR Hand 3 View Right 01/11/2015 20:23 CDT Yoan Hazel CPT code 00036 Reason For Exam (XR Hand 3 View Right) hand pain Report XR Hand 3 View Right [id number] Reason for exam: hand pain Comparison: None. [...] M.D. Technologist: Mayra Condon(R)(CT),Pooja Rivers Erich 01/11/2015 [facility] XR Knee 3 Views Right [id number] XR Knee 3 Views Right [id number] Name: KARIN JAMES Diagnostic Radiology Accession Number Exam Exam Date/Time Ordering Physician [id number] XR Knee 3 Views Right 01/11/2015 20:23 CDT Yoan Hazel CPT code 82703 Reason For Exam (XR Knee 3 Views Right) knee pain Report Study: XR Knee 3 Views Right [id number] Reason for exam: knee pain Comparison: None. [...] M.D. Technologist: Mayra Condon RT(R)(CT),Pooja Rivers 01/11/2015 [facility] ED Note - Provider ED Note - Provider Patient: KARIN JAMES Age: 34 years Sex: Male : [birth year] Associated Diagnoses: None Author: Yoan Hazel Basic Information History source: Patient. Additional information: Chief Complaint from Nursing Triage Note : Chief Complaint 01/11/15 13:41 Chief Complaint pt states he lost his footing while going to lunch at [employer]. c/o right knee pain and right wrist pain. pulse/motor/sensation present. pt states he's only here ' because the staff made me come.' . History of Present Illness Mr Laura is a 34 yo male who presents from [facility] after a fall, going up the stairs [...] Emergency department records. Orders Launch Orders Pharmacy: [facility] 325 mg-5 mg oral tablet (Order): 2 tab, PO, ONCE Radiology: XR Hand 3 View Right [id number] (Order): Stat, 01/11/15 20:10, hand pain, ED Location ed29, scaphoid view. XR Knee 3 Views Right [id number] (Order): Stat, 01/11/15 20:10, knee pain, ED [...] given the following educational materials: Knee Pain, Hcgi-ov-Mwux, Wrist Splint. Follow up with: [facility] You were [...] an y new or worrisome symptoms. , [facility] You were [...] patient's care. Attending signature: Crystal Yeung 01/11/2015 [facility] Consultation Consultation Patient: KARIN JAMES Age: [...] with T1DM by a doctor over at [facility] but has not followed up with him since September-October.He last filled his prescription in November at a clinic in [place], [place]. His average blood sugar levels with [...] diet Destin Martinez Internal Medicine PGY1 01/10/2015 [facility] ED Note - Provider ED Note [...] 01/09/15 18: 51 Nick Rhodes, SR Log-in, [id number], Hold Until Collected, OE_DEFAULT_ FROM_FORM, 01/09/15 18:51, Liver Panel, Lipase level Pharmacy: morphine (Order): 5 mg, IVPush, ONCE, Launch Order Profile (pull in existing orders) (Selected) Inpatient Orders Ordered IV Peripheral Insertion: POC Glucose: POC UA: . Results review: Lab results : All Laboratory 01/09/15 22:16 Glucose POC 294 mg/dL NE 01/09/15 18:47 Sodium 131 mmol/L LOW Potassium 4.1 mmol/L Chloride 88 mmol/L LOW CO2 25 mmol/L Anion Gap 18 mmol/L Glucose 508 mg/dL CRIT BUN 14 mg/dL Creatinine 0.79 mg/dL LOW BUN/Creat Ratio 17.7 GFR -Hungarian >90 mL/min/1.73m2 GFR Non -Hungarian >90 mL/min/1.73m2 Calcium 9.9 mg/dL Osmo (Calc) 295 mOsm/kg Total Protein 7.7 g/dL Albumin 4.3 g/dL Globulin 3.4 g/dL HI Albumin/Globulin Ratio 1.3 Bilirubin Total 0.3 mg/dL Bilirubin Direct <0.2 mg/dL Bilirubin Indirect >0.1 mg/dL Alkaline Phosphatase 108 U/L HI AST 11 U/L LOW ALT 15 U/L Lipase 37 units/L 01/09/15 17:57 Urine Color POC Light yellow Urine Clarity POC Clear Urine Specific [place] POC 1.010 Urine pH POC 7.0 Urine Protein POC Negative mg/dL Urine Glucose POC 500 mg/dL Urine Ketones POC Negative mg/dL Urine Bilirubin POC Negative Urine Blood POC Negative Urine Urobilinogen POC 0.2 EU/dL Urine Nitrite POC Negative Urine Leukocyte Esterase POC Negative 01/09/15 17:25 Glucose POC >500 mg/dL CRIT , Lab results : All Laboratory 01/10/15 00:08 Glucose POC 229 mg/dL NE 01/09/15 22:16 Glucose POC 294 mg/dL HI [...] the following educational materials: Headache, FAQs, Hyperglycemia, Bhnq-kh-Jqcm. Follow up with: [facility] You were seen here today for your headache and your high blood sugars. Please take the insulin as prescribed the Internal Medicine doctor. Follow-up with [facility] to establish care and return to the [...] and reassess.. Attending signature: Mindi Abbasi 01/09/2015 [facility] ED Note - Provider ED Note [...] Orders Diagnosis: *Level 3 ED Visit (Prof [id number]) (Order): 1, 01/07/15 20:17, Migraine headache 346.90, 01/08/15 06:17. 01/08/2015 [facility] Vital Signs Encounters Location Location Details Encounter Type Encounter Number Reason For Visit Attending Provider ADM Date DC Date Status Source [facility] CD:[id number] Emergency [id number] DEMETRICE DEVINEBRITTANY 12/29/2013 Active [employer] CD:[id number] Emergency [id number] Diana Junior 05/16/2014 05/16/2014 Active [employer]. [facility] CD:[id number] Emergency [id number] Pilo Longoria 06/17/2014 Active [employer]. [facility] CD:[id number] Emergency [id number] Yan Hannah 09/24/2014 09/25/2014 Active [employer]. [facility] CD:[id number] Emergency [id number] Yan Hannah 12/31/2014 01/01/2015 Active [employer]. [facility] CD:[id number] Emergency [id number] Alexx Marquez 01/06/2015 Active [employer] Procedures Procedure Code Date Perfomer Comments Source No data available for this section [facility]. Plan of Care Social History Assessment and Plan Family History Value Date Source Advance Directives Order Name Results Value Date Source
--- OUTSIDE RECORDS SUMMARY | 2016-09-09 19:36 | XMS REPORT | Continuity of Care Document ---
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 Medications Medication Details Route Status Patient Instructions Ordering Provider Order Date Source No Known Medications No known medications Active [place] [facility]. Allergies, Adverse Reactions, Alerts Substance Category Reaction Severity Reaction type Status Date Reported Comments Source penicillins Assertion Drug allergy [facility] Tramadol Assertion seizures Drug allergy [facility]. Immunizations Immunization Date Given Site Status Last Updated Comments Source No data available for this section No data available for this section [facility] Results Order Name Results Value Reference Range [...] insulin dependent diabetes mellitus / SNOMED CT 052296990 / Confirmed Hx of appendectomy / SNOMED CT 2458957649 / Confirmed Overweight / ICD-9-CM 278.02 / Confirmed Added based on documentation of BMI=25.2. Pancreatitis / SNOMED CT 680259116 / Confirmed. Physical Examination Vital Signs Vital [...] precautions, need to establish pcp discussed 01/13/2015 [facility] XR Hand 3 View Right [id number] XR Hand 3 View Right [id number] Name: KARIN JAMES Diagnostic Radiology Accession Number Exam Exam Date/Time Ordering Physician [id number] XR Hand 3 View Right 01/11/2015 20:23 CDT Yoan Hazel CPT code 15492 Reason For Exam (XR Hand 3 View Right) hand pain Report XR Hand 3 View Right [id number] Reason for exam: hand pain Comparison: None. [...] M.D. Technologist: Mayra Condon(R)(CT),Pooja Rivers Erich 01/11/2015 [facility] XR Knee 3 Views Right [id number] XR Knee 3 Views Right [id number] Name: KARIN JAMES Diagnostic Radiology Accession Number Exam Exam Date/Time Ordering Physician [id number] XR Knee 3 Views Right 01/11/2015 20:23 CDT Yoan Hazel CPT code 65461 Reason For Exam (XR Knee 3 Views Right) knee pain Report Study: XR Knee 3 Views Right [id number] Reason for exam: knee pain Comparison: None. Technique: 3 views of the right knee were obtained. Findings: No acute fracture or dislocation. No radiopaque foreign bodies. Impression: No acute osseous abnormalities. Dr. Ced Blsa and the staff radiologist have jointly reviewed and interpreted the above examination. Final Report Dictating Physician: Ced Blas Resident Physician: Ced Blas ELECTRONIC SIGNATURE Signed: 01.12.2015 08:42 Signed by: Sachin Cano M.D. Technologist: Mayra Condon RT(R)(CT),Pooja Rivers 01/11/2015 [facility] ED Note - Provider ED Note - Provider Patient: KARIN JAMES Age: 34 years Sex: Male : [birth year] Associated Diagnoses: None Author: Yoan Hazel Basic Information History source: Patient. Additional information: Chief Complaint from Nursing Triage Note : Chief Complaint 01/11/15 13:41 Chief Complaint pt states he lost his footing while going to lunch at [employer]. c/o right knee pain and right wrist pain. pulse/motor/sensation present. pt states he's only here ' because the staff made me come.' . History of Present Illness Mr Laura is a 34 yo male who presents from [employer] after a fall, going up the stairs [...] Emergency department records. Orders Launch Orders Pharmacy: [facility] 325 mg-5 mg oral tablet (Order): 2 tab, PO, ONCE Radiology: XR Hand 3 View Right [id number] (Order): Stat, 01/11/15 20:10, hand pain, ED Location ed29, scaphoid view. XR Knee 3 Views Right [id number] (Order): Stat, 01/11/15 20:10, knee pain, ED [...] given the following educational materials: Knee Pain, Pmvv-dm-Ykhz, Wrist Splint. Follow up with: [facility] You were [...] an y new or worrisome symptoms. , [facility] You were [...] patient's care. Attending signature: Crystal Yeung 01/11/2015 [facility] Consultation Consultation Patient: KARIN JAMES Age: [...] prescription in November at a clinic in [place], [place]. His average blood sugar levels with [...] diet Destin Martinez Internal Medicine PGY1 01/10/2015 [facility] ED Note - Provider ED Note [...] 01/09/15 18: 51 Nick Rhodes, SR Log-in, [id number], Hold Until Collected, OE_DEFAULT_ FROM_FORM, 01/09/15 18:51, Liver Panel, Lipase level Pharmacy: morphine (Order): 5 mg, IVPush, ONCE, Launch Order Profile (pull in existing orders) (Selected) Inpatient Orders Ordered IV Peripheral Insertion: POC Glucose: POC UA: . Results review: Lab results : All Laboratory 01/09/15 22:16 Glucose POC 294 mg/dL MD 01/09/15 18:47 Sodium 131 mmol/L LOW Potassium 4.1 mmol/L Chloride 88 mmol/L LOW CO2 25 mmol/L Anion Gap 18 mmol/L Glucose 508 mg/dL CRIT BUN 14 mg/dL Creatinine 0.79 mg/dL LOW BUN/Creat Ratio 17.7 GFR -Sammarinese >90 mL/min/1.73m2 GFR Non -Sammarinese >90 mL/min/1.73m2 Calcium 9.9 mg/dL Osmo (Calc) 295 mOsm/kg Total Protein 7.7 g/dL Albumin 4.3 g/dL Globulin 3.4 g/dL HI Albumin/Globulin Ratio 1.3 Bilirubin Total 0.3 mg/dL Bilirubin Direct <0.2 mg/dL Bilirubin Indirect >0.1 mg/dL Alkaline Phosphatase 108 U/L HI AST 11 U/L LOW ALT 15 U/L Lipase 37 units/L 01/09/15 17:57 Urine Color POC Light yellow Urine Clarity POC Clear Urine Specific [place] POC 1.010 Urine pH POC 7.0 Urine Protein POC Negative mg/dL Urine Glucose POC 500 mg/dL Urine Ketones POC Negative mg/dL Urine Bilirubin POC Negative Urine Blood POC Negative Urine Urobilinogen POC 0.2 EU/dL Urine Nitrite POC Negative Urine Leukocyte Esterase POC Negative 01/09/15 17:25 Glucose POC >500 mg/dL CRIT , Lab results : All Laboratory 01/10/15 00:08 Glucose POC 229 mg/dL MD 01/09/15 22:16 Glucose POC 294 mg/dL HI [...] the following educational materials: Headache, FAQs, Hyperglycemia, Esgd-yh-Icou. Follow up with: [facility] You were seen here today for your headache and your high blood sugars. Please take the insulin as prescribed the Internal Medicine doctor. Follow-up with [facility] to establish care and return to the [...] and reassess.. Attending signature: Mindi Abbasi 01/09/2015 [facility] ED Note - Provider ED Note [...] plan, Patient indicated understanding of instructions. Jackie Groman MD Emergency Medicine, PGY-2 Attending Attestation Teaching-Supervisory [...] Orders Diagnosis: *Level 3 ED Visit (Prof [id number]) (Order): 1, 01/07/15 20:17, Migraine headache 346.90, 01/08/15 06:17. 01/08/2015 [facility] Vital Signs Encounters Location Location Details Encounter Type Encounter Number Reason For Visit Attending Provider ADM Date DC Date Status Source [facility] CD:[id number] Emergency [id number] DEMETRICE DEVINEBRITTANY 12/29/2013 Active [employer] CD:[id number] Emergency [id number] Diana Junior 05/16/2014 05/16/2014 [facility] CD:[id number] Emergency [id number] Pilo Longoria 06/17/2014 [facility]. [facility] CD:[id number] Emergency [id number] Yan Hannah 09/24/2014 09/25/2014 Active [employer]. [facility] CD:[id number] Emergency [id number] Yan Hannah 12/31/2014 01/01/2015 [facility] CD:[id number] Emergency [id number] Alexx Marquez 01/06/2015 [facility]. Procedures Procedure Code Date Perfomer Comments Source No data available for this section [facility]. Plan of Care Social History Assessment and Plan Family History Value Date Source Advance Directives Order Name Results Value Date Source
[2016-09-09 19:40] VITALS: BP 142/90
[2016-09-09] MEDS ORDERED: HYDR-3702 PO (19:51)
[2016-09-09] MEDS ORDERED: SULF1TAB35 PO (19:51)
== END 2016-09-09 19:59 | disposition home or self-care (01) ==
LOC: ED 19:32
DX: L03.317 Cellulitis of buttock (principal)
CPT/HCPCS: 99281; 99283

== ENCOUNTER 2016-09-26 19:56 | Emergency (ER) | payer SELFPAY ==
[~2016-09-26] VITALS: Ht 170.2 cm; Wt 64.3 kg
--- OUTSIDE RECORDS SUMMARY | 2016-09-26 20:04 | XMS REPORT | Continuity of Care Document ---
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 Medications Medication Details Route Status Patient Instructions Ordering Provider Order Date Source No Known Medications No known medications Active [facility] [employer] [facility]. Allergies, Adverse Reactions, Alerts Substance Category Reaction Severity Reaction type Status Date Reported Comments Source penicillins Assertion Drug allergy [facility]. Tramadol Assertion seizures Drug allergy [facility]. Immunizations Immunization Date Given Site Status Last Updated Comments Source No data available for this section No data available for this section [facility]. Results Order Name Results Value Reference Range [...] insulin dependent diabetes mellitus / SNOMED CT 311240109 / Confirmed Hx of appendectomy / SNOMED CT 1688301344 / Confirmed Overweight / ICD-9-CM 278.02 / Confirmed Added based on documentation of BMI=25.2. Pancreatitis / SNOMED CT 610253398 / Confirmed. Physical Examination Vital Signs Vital [...] precautions, need to establish pcp discussed 01/13/2015 [facility] XR Hand 3 View Right [id number] XR Hand 3 View Right [id number] Name: KARIN JAMES Diagnostic Radiology Accession Number Exam Exam Date/Time Ordering Physician [id number] XR Hand 3 View Right 01/11/2015 20:23 CDT Yoan Hazel CPT code 37431 Reason For Exam (XR Hand 3 View Right) hand pain Report XR Hand 3 View Right [id number] Reason for exam: hand pain Comparison: None. [...] M.D. Technologist: Mayra Condon(R)(CT),Pooja Rivers Erich 01/11/2015 [facility] XR Knee 3 Views Right [id number] XR Knee 3 Views Right [id number] Name: KARIN JAMES Diagnostic Radiology Accession Number Exam Exam Date/Time Ordering Physician [id number] XR Knee 3 Views Right 01/11/2015 20:23 CDT Yoan Hazel CPT code 24978 Reason For Exam (XR Knee 3 Views Right) knee pain Report Study: XR Knee 3 Views Right [id number] Reason for exam: knee pain Comparison: None. [...] M.D. Technologist: Mayra Condon RT(R)(CT),Pooja Rivers 01/11/2015 [facility] ED Note - Provider ED Note - Provider Patient: KARIN JAMES Age: 34 years Sex: Male : 84 Associated Diagnoses: None Author: Yoan aHzel Basic Information History source: Patient. Additional information: Chief Complaint from Nursing Triage Note : Chief Complaint 01/11/15 13:41 Chief Complaint pt states he lost his footing while going to lunch at [employer]. c/o right knee pain and right wrist pain. pulse/motor/sensation present. pt states he's only here ' because the staff made me come.' . History of Present Illness Mr Laura is a 34 yo male who presents from [employer] after a fall, going up the stairs [...] Emergency department records. Orders Launch Orders Pharmacy: [facility] 325 mg-5 mg oral tablet (Order): 2 tab, PO, ONCE Radiology: XR Hand 3 View Right [id number] (Order): Stat, 01/11/15 20:10, hand pain, ED Location ed29, scaphoid view. XR Knee 3 Views Right [id number] (Order): Stat, 01/11/15 20:10, knee pain, ED [...] given the following educational materials: Knee Pain, Fbux-du-Dodt, Wrist Splint. Follow up with: [facility] You were seen in [...] an y new or worrisome symptoms. , [facility] You were seen in [...] patient's care. Attending signature: Crystal Yeung 01/11/2015 [facility] Consultation Consultation Patient: KARIN JAMES Age: [...] T1DM by a doctor over at [facility] but has not followed up with him since September-October.He last filled his prescription in November at a clinic in [place], [place]. His average blood sugar levels with [...] diet Destin Martinez Internal Medicine PGY1 01/10/2015 [facility] ED Note - Provider ED Note [...] 18:50, No Credit, 01/09/15 18: 51 Nick Rhodse, SR Log-in, [id number], Hold Until Collected, OE_DEFAULT_ FROM_FORM, 01/09/15 18:51, Liver Panel, Lipase level Pharmacy: morphine (Order): 5 mg, IVPush, ONCE, Launch Order Profile (pull in existing orders) (Selected) Inpatient Orders Ordered IV Peripheral Insertion: POC Glucose: POC UA: . Results review: Lab results : All Laboratory 01/09/15 22:16 Glucose POC 294 mg/dL [place] 01/09/15 18:47 Sodium 131 mmol/L LOW Potassium 4.1 mmol/L Chloride 88 mmol/L LOW CO2 25 mmol/L Anion Gap 18 mmol/L Glucose 508 mg/dL CRIT BUN 14 mg/dL Creatinine 0.79 mg/dL LOW BUN/Creat Ratio 17.7 GFR -Singaporean >90 mL/min/1.73m2 GFR Non -Singaporean >90 mL/min/1.73m2 Calcium 9.9 mg/dL Osmo (Calc) 295 mOsm/kg Total Protein 7.7 g/dL Albumin 4.3 g/dL Globulin 3.4 g/dL HI Albumin/Globulin Ratio 1.3 Bilirubin Total 0.3 mg/dL Bilirubin Direct <0.2 mg/dL Bilirubin Indirect >0.1 mg/dL Alkaline Phosphatase 108 U/L HI AST 11 U/L LOW ALT 15 U/L Lipase 37 units/L 01/09/15 17:57 Urine Color POC Light yellow Urine Clarity POC Clear Urine Specific [place] POC 1.010 Urine pH POC 7.0 Urine Protein POC Negative mg/dL Urine Glucose POC 500 mg/dL Urine Ketones POC Negative mg/dL Urine Bilirubin POC Negative Urine Blood POC Negative Urine Urobilinogen POC 0.2 EU/dL Urine Nitrite POC Negative Urine Leukocyte Esterase POC Negative 01/09/15 17:25 Glucose POC >500 mg/dL CRIT , Lab results : All Laboratory 01/10/15 00:08 Glucose POC 229 mg/dL [place] 01/09/15 22:16 Glucose POC 294 mg/dL HI [...] the following educational materials: Headache, FAQs, Hyperglycemia, Zyye-sz-Swkz. Follow up with: [facility] You were seen here today for your headache and your high blood sugars. Please take the insulin as prescribed the Internal Medicine doctor. Follow-up with [facility] to establish care and return to the [...] and reassess.. Attending signature: Mindi Abbasi 01/09/2015 [facility] ED Note - Provider ED Note [...] Orders Diagnosis: *Level 3 ED Visit (Prof [id number]) (Order): 1, 01/07/15 20:17, Migraine headache 346.90, 01/08/15 06:17. 01/08/2015 [facility] Vital Signs Encounters Location Location Details Encounter Type Encounter Number Reason For Visit Attending Provider ADM Date DC Date Status Source [facility] CD:[id number] Emergency [id number] DEMETRICE DEVINEBRITTANY 12/29/2013 Active [employer]. [facility] CD:[id number] Emergency [id number] Diana Junior 05/16/2014 05/16/2014 Active [employer] [facility] CD:[id number] Emergency [id number] Pilo Longoria 06/17/2014 Active [employer] [facility] CD:319004 Emergency [id number] Yan Hannah 09/24/2014 09/25/2014 Active [employer] [facility] CD:590993 Emergency [id number] Yan Hannah 12/31/2014 01/01/2015 Active [employer] [facility] CD:[id number] Emergency [id number] Alexx Marquez 01/06/2015 Active [employer] Procedures Procedure Code Date Perfomer Comments Source No data available for this section [employer]. Plan of Care Social History Assessment and Plan Family History Value Date Source Advance Directives Order Name Results Value Date Source
[2016-09-26] MEDS ORDERED: ACET325T38 PO (20:09)
--- NOTE | 2016-09-26 20:13 | NUR ---
IS DIABETIC BUT VERY NON COMPLIANT. IS SUPPOSE TO TAKE INSULIN DOES SO INTERMITANTLY
[2016-09-26] MEDS ORDERED: ED- HYDROcodone/ACETAMINOPHEN 5MG/325MG (NORCO) 6 TABLETS/BTL PO ONE (20:35)
[2016-09-26] MEDS ORDERED: KETOROLAC 60 MG/2 ML (TORADOL) VIAL IM ONE (20:35)
[2016-09-26] MEDS ORDERED: ORPHENADRINE 60 MG/2 ML (NORFLEX) AMP IM ONE (20:35)
[2016-09-26] MEDS ORDERED: CYCL10TA45 PO (20:41)
[2016-09-26] MEDS ORDERED: HYDR-3702 PO (20:41)
--- NOTE | 2016-09-26 20:52 | NUR ---
SHOTS WERE GIVEN IM PT DID NOT WANT TO WAIT FOR EVAL
[2016-09-26 20:53] VITALS: BP 127/88
== END 2016-09-26 20:55 | disposition home or self-care (01) ==
LOC: ED 19:58
DX: M54.5 Low back pain (principal)
CPT/HCPCS: 96372; 99282; J1885; J2360

== ENCOUNTER 2016-10-02 14:37 | Inpatient (IN) | payer SELFPAY ==
[~2016-10-02] VITALS: Ht 170.2 cm; Wt 71.3 kg
[~2016-10-02 14:37] MED LIST changes: +ACET325T38 PO; +CYCL10TA45 PO
--- OUTSIDE RECORDS SUMMARY | 2016-10-02 14:43 | XMS REPORT | Continuity of Care Document ---
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 Medication Details Route Status Patient Instructions Ordering Provider Order Date Source No Known Medications No known medications Active [email or web address] Allergies, Adverse Reactions, Alerts Substance Category Reaction Severity Reaction type Status Date Reported Comments Source penicillins Assertion [facility] Tramadol Assertion seizures Drug allergy [facility]. Immunizations Immunization Date Given Site Status Last Updated Comments Source No data available for this section No data available for this section [email or web address] Results Order Name Results Value Reference Range [...] insulin dependent diabetes mellitus / SNOMED CT 853275919 / Confirmed Hx of appendectomy / SNOMED CT 4444040638 / Confirmed Overweight / ICD-9-CM 278.02 / Confirmed Added based on documentation of BMI=25.2. Pancreatitis / SNOMED CT 270523992 / Confirmed. Physical Examination Vital Signs Vital [...] precautions, need to establish pcp discussed 01/13/2015 [facility] XR Hand 3 View Right [id number] XR Hand 3 View Right [id number] Name: KARIN JAMES Diagnostic Radiology Accession Number Exam Exam Date/Time Ordering Physician [id number] XR Hand 3 View Right 01/11/2015 20:23 CDT Yoan Hazel CPT code 43009 Reason For Exam (XR Hand 3 View Right) hand pain Report XR Hand 3 View Right [id number] Reason for exam: hand pain Comparison: None. [...] M.D. Technologist: Mayra Condon(R)(CT),Pooja Rivers Erich 01/11/2015 [facility] XR Knee 3 Views Right [id number] XR Knee 3 Views Right [id number] Name: KARIN JAMES Diagnostic Radiology Accession Number Exam Exam Date/Time Ordering Physician [id number] XR Knee 3 Views Right 01/11/2015 20:23 CDT Yoan Hazel CPT code 48477 Reason For Exam (XR Knee 3 Views Right) knee pain Report Study: XR Knee 3 Views Right [id number] Reason for exam: knee pain Comparison: None. [...] M.D. Technologist: Mayra Condon RT(R)(CT),Pooja Rivers 01/11/2015 [facility] ED Note - Provider ED Note - Provider Patient: KARIN JAMES Age: 34 years Sex: Male : 84 Associated Diagnoses: None Author: Yoan Hazel Basic Information History source: Patient. Additional information: Chief Complaint from Nursing Triage Note : Chief Complaint 01/11/15 13:41 Chief Complaint pt states he lost his footing while going to lunch at [employer]. c/o right knee pain and right wrist pain. pulse/motor/sensation present. pt states he's only here ' because the staff made me come.' . History of Present Illness Mr Laura is a 34 yo male who presents from [place] after a fall, going up the stairs [...] Emergency department records. Orders Launch Orders Pharmacy: [facility] 325 mg-5 mg oral tablet (Order): 2 tab, PO, ONCE Radiology: XR Hand 3 View Right [id number] (Order): Stat, 01/11/15 20:10, hand pain, ED Location ed29, scaphoid view. XR Knee 3 Views Right [id number] (Order): Stat, 01/11/15 20:10, knee pain, ED [...] given the following educational materials: Knee Pain, [id number], Wrist Splint. Follow up with: [facility] You were seen in [...] an y new or worrisome symptoms. , [facility] You were seen in [...] patient's care. Attending signature: Crystal Yeung 01/11/2015 [facility] Consultation Consultation Patient: KARIN JAMES Age: 34 [...] with T1DM by a doctor over at [facility] but has not followed up with him since September-October.He last filled his prescription in November at a clinic in [place], [place]. His average blood sugar levels with [...] diet Destin Martinez Internal Medicine PGY1 01/10/2015 [facility] ED Note - Provider ED Note - [...] 01/09/15 18: 51 Nick Rhodes, SR Log-in, [id number], Hold Until Collected, OE_DEFAULT_ FROM_FORM, 01/09/15 18:51, Liver Panel, Lipase level Pharmacy: morphine (Order): 5 mg, IVPush, ONCE, Launch Order Profile (pull in existing orders) (Selected) Inpatient Orders Ordered IV Peripheral Insertion: POC Glucose: POC UA: . Results review: Lab results : All Laboratory 01/09/15 22:16 Glucose POC 294 mg/dL NV 01/09/15 18:47 Sodium 131 mmol/L LOW Potassium 4.1 mmol/L Chloride 88 mmol/L LOW CO2 25 mmol/L Anion Gap 18 mmol/L Glucose 508 mg/dL CRIT BUN 14 mg/dL Creatinine 0.79 mg/dL LOW BUN/Creat Ratio 17.7 GFR -[place] Zealander >90 mL/min/1.73m2 GFR Non -[place] Zealander >90 mL/min/1.73m2 Calcium 9.9 mg/dL Osmo (Calc) 295 mOsm/kg Total Protein 7.7 g/dL Albumin 4.3 g/dL Globulin 3.4 g/dL HI Albumin/Globulin Ratio 1.3 Bilirubin Total 0.3 mg/dL Bilirubin Direct <0.2 mg/dL Bilirubin Indirect >0.1 mg/dL Alkaline Phosphatase 108 U/L HI AST 11 U/L LOW ALT 15 U/L Lipase 37 units/L 01/09/15 17:57 Urine Color POC Light yellow Urine Clarity POC Clear Urine Specific [place] POC 1.010 Urine pH POC 7.0 Urine Protein POC Negative mg/dL Urine Glucose POC 500 mg/dL Urine Ketones POC Negative mg/dL Urine Bilirubin POC Negative Urine Blood POC Negative Urine Urobilinogen POC 0.2 EU/dL Urine Nitrite POC Negative Urine Leukocyte Esterase POC Negative 01/09/15 17:25 Glucose POC >500 mg/dL CRIT , Lab results : All Laboratory 01/10/15 00:08 Glucose POC 229 mg/dL NV 01/09/15 22:16 Glucose POC 294 mg/dL HI [...] the following educational materials: Headache, FAQs, Hyperglycemia, Homo-ha-Recg. Follow up with: [facility] You were seen here today for your headache and your high blood sugars. Please take the insulin as prescribed the Internal Medicine doctor. [place] [facility] [place] [...] and reassess.. Attending signature: Mindi Abbasi 01/09/2015 [facility] ED Note - Provider ED Note - [...] Orders Diagnosis: *Level 3 ED Visit (Prof [id number]) (Order): 1, 01/07/15 20:17, Migraine headache 346.90, 01/08/15 06:17. 01/08/2015 [facility] Vital Signs Encounters Location Location Details Encounter Type Encounter Number Reason For Visit Attending Provider ADM Date DC Date Status Source [facility] [id number] Emergency [id number] DEMETRICE DEIVNEBRITTANY 12/29/2013 Active [facility] [id number] Emergency [id number] Diana Junior 05/16/2014 05/16/2014 Active [facility] [id number] Emergency [id number] Pilo Longoria 06/17/2014 Active [facility] [id number] Emergency [id number] Yan Hannah 09/24/2014 09/25/2014 Active [place] [id number] Emergency [id number] Yan Hannah 12/31/2014 01/01/2015 Active [facility] [id number] Emergency [id number] Alexx Marquez 01/06/2015 Active [facility]. Procedures Procedure Code Date Perfomer Comments Source No data available for this section [facility] Plan of Care Social History Assessment and Plan Family History Value Date Source Advance Directives Order Name Results Value Date Source
[2016-10-02] MEDS ORDERED: SODIUM CHLORIDE FLUSH 10 ML SYR IV PRN (14:50)
[2016-10-02] MEDS ORDERED: SODIUM CHLORIDE FLUSH 3 ML SYR IV PRN (14:50)
--- NOTE | 2016-10-02 14:50 | NUR ---
Patient report has been received from Triage Nurse.
[2016-10-02 15:24] LABS: BASOPHILS % (AUTO) 1 % (0-2); EOSINOPHILS # (AUTO) 0.1 10^3uL; EOSINOPHILS % (AUTO) 2 % (0-4); LYMPHOCYTES # (AUTO) 1.4 X10^3; MEAN CORPUSCULAR HEMOGLOBIN 30.3 PG (26.0-34.0); MEAN CORPUSCULAR VOLUME 85 FL (80-100); MEAN PLATELET VOLUME 10.9 FL (6.0-9.5); MONOCYTES # (AUTO) 0.5 X10^3; MONOCYTES % (AUTO) 7 % (3-11); NEUTROPHILS # (AUTO) 4.5 X10^3; NEUTROPHILS % (AUTO) 69 % (51-67); PLATELET COUNT 276 10^3uL (150-450); WHITE BLOOD COUNT 6.52 10^3uL (4.0-11.0)
[2016-10-02 15:26] LABS: MEAN CORPUSCULAR HGB CONC 35.6 g/dL (31.0-37.0)
[2016-10-02 15:31] LABS: BILIRUBIN,URINE Negative (Negative); CLARITY,URINE Clear; COLOR,URINE Yellow; GLUCOSE, URINE (UA) 2+ (Negative); LEUKOCYTE ESTERASE ,URINE Negative (Negative); UROBILINOGEN,URINE 0.2 mg/dL (0.2-1.0)
[2016-10-02 15:33] LABS: ALBUMIN 3.2 g/dL (3.4-5.0); ALKALINE PHOSPHATASE 234 U/L (38-126); ANION GAP 13.6 MEQ/L (3-15); BUN/CREATININE RATIO 26 (10-20)
--- NOTE | 2016-10-02 15:40 | NUR ---
1540: Iced water provided to patient as per Dr. Vargas instruction.
[2016-10-02] MEDS ORDERED: INSULIN REGULAR VIAL 100 UNIT in SODIUM CHLORIDE 100 ML IV ONE ×2 (15:45→16:30)
[2016-10-02] MEDS ORDERED: INSULIN REGULAR 1 UNIT/0.01 ML DOSE IV ONE (15:45)
[2016-10-02 15:50] LABS: ACETONE SERUM Trace (Negative)
--- NOTE | 2016-10-02 17:00 | NUR ---
Patient has been watching wrestling program on cell phone. Has been restless at intervals and tosses/turns/repositions self on ER cart. Has wanted room lights down, curtains closed so that he could better watch phone.
--- NOTE | 2016-10-02 17:20 | NUR ---
PATIENT THREATENING TO LEAVE AMA UNLESS HE GETS SOMETHING TO EAT. 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
--- NOTE | 2016-10-02 17:25 | NUR ---
HS ARRIVES WITH FOOD FOR PT.
--- NOTE | 2016-10-02 17:45 | NUR ---
Condition report received from ALIVIA MORRIS
[2016-10-02] MEDS ORDERED: ONDANSETRON 2 MG/ML (Z0FRAN) 2 ML VIAL IV PRN (17:50)
[2016-10-02] MEDS ORDERED: GLUCAGON EMERGENCY 1 MG/KIT IM PRN (17:50)
[2016-10-02] MEDS ORDERED: INSULIN REGULAR VIAL 100 UNIT in SODIUM CHLORIDE 100 ML IV SCH (17:50)
[2016-10-02] MEDS ORDERED: DEXTROSE 50% 25 GM/50 ML SYRINGE IV PRN (17:50)
[2016-10-02] MEDS ORDERED: POLYETHYLENE GLYCOL 17 GM (MIRALAX) PACKET PO PRN (17:50)
[2016-10-02] MEDS ORDERED: PROMETHAZINE HCL INJ 12.5 MG in SODIUM CHLORIDE 25 ML IV PRN (17:50)
[2016-10-02] MEDS ORDERED: DOCUSATE SODIUM 100 MG (COLACE) CAP PO PRN (17:50)
[2016-10-02] MEDS ORDERED: ONDANSETRON 4 MG (ZOFRAN) ORAL DISSOLVE TAB PO PRN (17:50)
[2016-10-02] MEDS ORDERED: ACETAMINOPHEN 325 MG TAB (TYLENOL) PO PRN (17:50)
[2016-10-02] MEDS ORDERED: CALCIUM CARBONATE CHEWABLE 300 MG (TUMS) TABLET PO PRN (17:50)
[2016-10-02] MEDS ORDERED: MAG HYDROX/AL HYDROX/SIMETH 200-200-20/5 ML (MAG-AL PLUS) 30 ML UDC PO PRN (17:50)
[2016-10-02] MEDS ORDERED: POTASSIUM CL IVPB 10 MEQ/100ML 100 ML IV PRN (17:50)
[2016-10-02] MEDS ORDERED: MAGNESIUM HYDROXIDE 80MG/ML (MILK OF MAGNESIA) 30 ML UDC PO PRN (17:50)
[2016-10-02] MEDS ORDERED: NICOTINE 21 MG (NICODERM) PATCH TD SCH (17:50)
[2016-10-02] MEDS ORDERED: KETOROLAC 15 MG/ML (TORADOL) 1 ML VIAL IV PRN (17:50)
[2016-10-02] MEDS ORDERED: DEXTROSE ORAL GEL (GLUTOSE 40%) 15 GM TUBE PO PRN (17:50)
[2016-10-02 17:52] VITALS: BP 109/74
--- NOTE | 2016-10-02 17:52 | NUR ---
To room 345 per stretcher - transferred self to bed - see ICU admission assessment - cooperative and friendly - IV NS @ 250 mL/hr and regular insulin @ 6.1 units/hour
[2016-10-02 18:00] VITALS: BP 109/74
--- NOTE | 2016-10-02 18:00 | History and Physical (E) ---
History & Physical PCP: None CC: Hyperglycemia HPI Braulio Sanchez is a 36 year old male with diabetes mellitus type 1 who was admitted from ED 10/02 where he presented again with marked hyperglycemia. He is well known to the service and has prior admissions for uncontrolled diabetes , DKA. Stated he came to ED because his meter kept reading "HI" when he was testing his glucose. CBC was normal. Na 121, K 4.9, Glucose 950. AlkP elevated at 234. UA positive for glucose and ketones. Serum acetone level was trace. He was given NS bolus x 2, 6 units regular IV insulin, and insulin drip was started in ED. He was admitted to ICU for further management of DKA. On arrival to unit, awake, alert, interactive, oriented and appears in no distress. Not tachypneic. Says he noticed since 09/30 that he was getting more thirst, urinating more, and tired more. Has some insulin but is running out at home. Takes 70/30 OTC. No recent signs or symptoms of infection. Has some increased back pain which he attributes to a pulled muscle. At present, is not nauseated and is hungry. PMH * MRSA (presumed) Cellulitis of right hand 08/2015 * Diabetes Mellitus Type I * Medication non-adherence * CAD? (History of "mild" heart attack.) 02/2015 * History of MRSA abscess, left axilla * Tobacco abuse * Partially torn ACL right knee * Endocarditis? 02/2015, Treated in [place]. * Bronchitis * Methamphetamine abuse * Paradoxical reaction to lorazepam PSH * Heart cath 02/2015 * Appendectomy * Left hand cyst removal * Left hand tendon repair * Right hand tendon repair ALLERGIES: Please see list at end of report. HOME MEDICATIONS: Please see list at end of report. FH Mother has DM, heart disease, kidney disease. Father has HTN. His sister is healthy, half sister is healthy. SH Lives at aunt's house in [place]. Originally from [place]. Had lived in [place] with friends prior to move to [place] but moved here after his cardiac illness in February 2015. Unemployed. Smokes. No alcohol. Acknowledges history of methamphetamine use. Has significant other. Not . Has children who live with their mother. ROS CONSTITUTION: Denies fever or chills. HEENT: No change in vision or hearing. CV: No chest pain, palpitations. PULM: No cough, shortness of breath, difficulty breathing. GI: Some mild abdominal pain. : Increased urination. MS: Back pain. NEURO: No numbness or tingling. No weakness. INTEG: No rashes, lesions, or sores. ENDO: No heat or cold intolerance. No polydipsia or polyuria. HEME/LYMPH: No easy bruising or bleeding. No swollen glands. PSYCH: No change in mood or behavior. OBJECTIVE Vital Signs Date Time Temp Pulse Resp B/P Pulse Ox O2 Delivery O2 Flow Rate FiO2 10/02/16 14:42 97.6 89 16 121/68 100 Room Air GEN: Awake, alert, oriented, NAD at present. HEENT: EOMI, PERRL, dry oral mucosa. Tongue pierced. CV: RRR S1 S2 normal with no murmur LUNGS: CTA B with no R/R/W. ABD: Soft, NT/ND with normal bowel sounds. Tolerates exam well. EXTR: No C/C/E. Normal peripheral pulses. INTEG: No rash. NEURO: No focal motor neuro deficit. Weight: 56 kg Laboratory Results-14 Days 10/02/16 14:50: Acetone Level Trace, Alanine Aminotransferase (ALT/SGPT) 34, Albumin 3.2#L, Albumin/Globulin Ratio 1.142, Alkaline Phosphatase 234H, Anion Gap 13.6, Aspartate Amino Transf (AST/SGOT) 21, BUN/Creatinine Ratio 26H, Basophils # ( Auto) 0.0, Basophils (%) (Auto) 1, Blood Urea Nitrogen 16, Calcium Level 8.2L, Calcium/Ionized Calcium Ratio 4.0, Calculated Osmolality 283, Carbon Dioxide Level 23, Chloride Level 89L, Creatinine 0.62L, Eosinophils # (Auto) 0.1, Eosinophils (%) (Auto) 2, Estimat Glomerular Filtration Rate 179.7, Estimated GFR (Non- 148.5, Glucose Level 950*H, Hematocrit 37.10L, Hemoglobin 13.2L, Lymphocytes # (Auto) 1.4, Lymphocytes (%) (Auto) 21, Mean Corpuscular Hemoglobin 30.3, Mean Corpuscular Hemoglobin Concent 35.6, Mean Corpuscular Volume 85, Mean Platelet Volume 10.9H, Monocytes # (Auto) 0.5, Monocytes (%) (Auto) 7, Neutrophils # (Auto) 4.5, Neutrophils (%) (Auto) 69H, Platelet Count 276, Potassium Level 4.9, Red Blood Count 4.36L, Red Cell Distribution Width 12.0, Sodium Level 121L, Total Bilirubin 0.3#, Total Protein 6.0L, Urine Bilirubin Negative, Urine Blood Negative, Urine Clarity Clear, Urine Collection Type Clean catch, Urine Color Yellow, Urine Glucose (UA) 2+H, Urine Ketones 1+H, Urine Leukocyte Esterase Negative, Urine Nitrite Negative, Urine Protein Negative, Urine Specific [place] <=1.005, Urine Urobilinogen 0.2, Urine pH 6.0, White Blood Count 6.52 IMAGING: None ASSESSMENT Braulio Sanchez is a 36 year old male admitted from ED 10/02 with DKA in the setting of chronically poorly controlled diabetes mellitus type 1. PLAN * DKA: Noted on admit that AG = 9 but there is pseudohyponatremia. When correcting sodium for glucose, AG = 23. IVF and insulin drip per DKA protocol. * Pseudohyponatremia: Na 121 on serum chemistry but glucose 950. Na corrects to 135. Monitor trend. * Diabetes Mellitus Type 1, Uncontrolled: Check A1C. Expected to be > 14 which it has been on two other prior admits. Insulin drip per DKA protocol with plan to transition to 70/30 regimen on the basis of cost which has been a challenge for him in the past. * Dehydration: Due to DKA. IVF per DKA protocol. * F/E/N: Clear liquid for now. IVF per DKA protocol. Peripheral IV x 2. Daily weight, I&O. * Prophylaxis: Ambulate * Code Status: Full * Dispo: ICU, expecting at least 2 day stay. 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 Allergies/Home Medications Allergies: Coded Allergies: Penicillins (Verified Allergy, Unknown, 10/02/16) amoxicillin (Verified Allergy, Unknown, 10/02/16) tramadol (Verified Allergy, Unknown, 10/02/16) SEIZURE lorazepam (Verified Adverse Reaction, Severe, Paradoxical agitation, ) Reported Home Medications Scheduled Acetaminophen (Tylenol) 325 MG PO NEEDED (Reported) Insulin NPH/Regular (Humulin 70/30) 30 UNIT SC BID WITH MEALS Scheduled PRN Cyclobenzaprine HCl (Flexeril) 10 MG PO BID PRN PRN SPASMS Discontinued Medications Hydrocodone/Acetaminophen (Stephen[place] 5mg/325mg) 1-2 TAB PO Q4H PRN PRN PAIN Discontinued Reason: Update list Hydrocodone/Acetaminophen (Stephen[place] 5mg/325mg) 1 TAB PO Q6H PRN PRN PAIN Discontinued Reason: Course completed Ibuprofen (Ibuprofen) 200 MG PO NEEDED (Reported) Discontinued Reason: Update list Sulfamethoxazole/Trimethoprim (Bactrim DS) 1 TAB PO BID Discontinued Reason: Update list Copies to: End of Report . CHRISTY VITALE MD October 02, 2016 17:51
--- NOTE | 2016-10-02 18:10 | NUR ---
Accu check 411 - sipping on zero sprite
--- NOTE | 2016-10-02 18:50 | NUR ---
NS decreased to 200 mL/hr
[2016-10-02 19:00] VITALS: BP 116/64
--- NOTE | 2016-10-02 19:20 | NUR ---
Regular insulin increased to 9 units/hour per protocol: 50% increase if BG does not decrease by 50 in 1 hour - checked by AB RN
--- NOTE | 2016-10-02 20:00 | NUR ---
Patient became agitated and yelling curse words at lab staff and warehouse worker 2nd shift, refused lab draw at 1999. This nurse was in another patient room, so patient said he 'wanted to go home".
--- NOTE | 2016-10-02 20:20 | NUR ---
Accu check 256.
--- NOTE | 2016-10-02 20:30 | NUR ---
check accu check, was able to get patient to calm down, as he wanted shower and was waiting on his aunt to get to hospital with his belongings. Assured patient when he is ready we will assist him to the shower. He wanted pain medication for back pain but "after shower was completed". He wanted to eat "or i am going home" and they fed him in ED, warehouse shift supervisor asked for 'salad" she was able to find a sandwich and he was having diet Sprite and Coke. Settled for this minute and calmed down.
[2016-10-02 20:56] LABS: ALBUMIN 3.3 g/dL (3.4-5.0); ANION GAP 10.6 MEQ/L (3-15)
--- NOTE | 2016-10-02 21:10 | NUR ---
Maria E MORRIS took patient to third floor for shower. Ambulated.
[2016-10-02 21:30] VITALS: BP 106/76
--- NOTE | 2016-10-02 21:30 | NUR ---
accu check 130 - IV fluids changed due to K result -
[2016-10-02] MEDS: D5 1/2 NS W/KCL 20 MEQ/L 1,000 ML IV SCH (21:38)
[2016-10-02] MEDS: HYDROmorphone 1 MG/ML (DILAUDID) SYRINGE IV PRN (21:39)
--- NOTE | 2016-10-02 21:40 | NUR ---
Prn dilaudid for c/o back pain # /
[2016-10-02 23:51] VITALS: BP 127/89
--- NOTE | 2016-10-02 23:55 | NUR ---
blood sugar by fingerstick 171 - patient remains hungry - casting house worker gave turkey wrap. Patient becomes angry and states he feels hungry when his blood sugar is this low - normal for him is in 200s. patient is content and calm when provided with demands of diet coke and something to eat.
[2016-10-03] MEDS: HYDROmorphone 1 MG/ML (DILAUDID) SYRINGE IV PRN ×2 (00:02→06:30)
--- NOTE | 2016-10-03 00:10 | NUR ---
accu check 148 - decreased insulin to 2 u/hr.
--- NOTE | 2016-10-03 00:30 | NUR ---
Prn Dilaudid per prn order for back pain #7.
[2016-10-03 00:35] LABS: ALBUMIN 3.2 g/dL (3.4-5.0); ANION GAP 10.6 MEQ/L (3-15)
[2016-10-03] MEDS: D5 1/2 NS W/KCL 20 MEQ/L 1,000 ML IV SCH ×2 (02:49→07:39)
[2016-10-03 04:00] VITALS: BP 109/71
--- NOTE | 2016-10-03 04:20 | NUR ---
Prn Toradol per order for back pain - resting in between, uses urinal at bedside or ambulates with steady gait to toilet. Respirations even non labored, has been pleasant and talkative with staff, cooperative with lab draws, talked with patient if he would read material handout on diabetes and nutrition - stated he would. will provide patient with educational material and is resting in bed with eyes closed. VS as charted, insulin infusing, continue to monitor
[2016-10-03 04:37] LABS: ANION GAP 8.1 MEQ/L (3-15)
[2016-10-03] MEDS ORDERED: PANTOPRAZOLE 40 MG (PROTONIX) TAB PO SCH (07:00)
--- NOTE | 2016-10-03 07:20 | NUR ---
See ICU assessment - regular insulin drip decreased to 6 units/hr - checked by AB RN - awake alert "hungry" - reports back pain "5"
[2016-10-03 07:30] VITALS: BP 109/76
--- NOTE | 2016-10-03 07:35 | NUR ---
Accu check 175
--- NOTE | 2016-10-03 07:50 | NUR ---
Clear liquid diet tray served - swearing angry "I'm hungry" - Dr Pratt notified
[2016-10-03] MEDS ORDERED: INSULIN NPH/REG 70/30 1 UNIT/0.01 ML (HUMULIN 70/30) DOSE SC SCH ×2 (08:00→08:05)
--- NOTE | 2016-10-03 08:14 | Progress Note (E) ---
Progress Note SUBJECTIVE Vitals stable. Ketorolac helping with chronic back pain. Has been pleasant and interactive this AM but got angry earlier about food. Refused lab draw at 1999 but eventually it was drawn. Glucose much improved and anion gap closed. Transitioning to 70/30 this AM. Transferring out of ICU. OBJECTIVE Vital Signs Date Time Temp Pulse Resp B/P Pulse Ox O2 Delivery O2 Flow Rate FiO2 10/03/16 05:00 70 10/03/16 04:00 98.4 13 109/71 99 Room air I & O 10/02/16 10/03/16 Cumulative From/Thru 19:00 07:00 10/02/16 14:42 - 10/03/16 04:00 Intake Total 2054 ml 4510 ml 6564 ml Output Total 3000 ml 3000 ml Balance 2054 ml 1510 ml 3564 ml GEN: Awake, alert, oriented, NAD at present. HEENT: EOMI, PERRL, dry oral mucosa. Tongue pierced. CV: RRR S1 S2 normal with no murmur LUNGS: CTA B with no R/R/W. ABD: Soft, NT/ND with normal bowel sounds. Tolerates exam well. EXTR: No C/C/E. Normal peripheral pulses. INTEG: No rash. NEURO: No focal motor neuro deficit. Weight: 56 kg Lab-Past 14 Days, 35 Results 10/02/16 14:50: Acetone Level Trace, Alanine Aminotransferase (ALT/SGPT) 34, Albumin 3.2#L, Albumin/Globulin Ratio 1.142, Alkaline Phosphatase 234H, Anion Gap 13.6, Aspartate Amino Transf (AST/SGOT) 21, BUN/Creatinine Ratio 26H, Basophils # ( Auto) 0.0, Basophils (%) (Auto) 1, Blood Urea Nitrogen 16, Calcium Level 8.2L, Calcium/Ionized Calcium Ratio 4.0, Calculated Osmolality 283, Carbon Dioxide Level 23, Chloride Level 89L, Creatinine 0.62L, Eosinophils # (Auto) 0.1, Eosinophils (%) (Auto) 2, Estimat Glomerular Filtration Rate 179.7, Estimated GFR (Non- 148.5, Glucose Level 950*H, Hematocrit 37.10L, Hemoglobin 13.2L, Lymphocytes # (Auto) 1.4, Lymphocytes (%) (Auto) 21, Mean Corpuscular Hemoglobin 30.3, Mean Corpuscular Hemoglobin Concent 35.6, Mean Corpuscular Volume 85, Mean Platelet Volume 10.9H, Monocytes # (Auto) 0.5, Monocytes (%) (Auto) 7, Neutrophils # (Auto) 4.5, Neutrophils (%) (Auto) 69H, Platelet Count 276, Potassium Level 4.9, Red Blood Count 4.36L, Red Cell Distribution Width 12.0, Sodium Level 121L, Total Bilirubin 0.3#, Total Protein 6.0L, Urine Bilirubin Negative, Urine Blood Negative, Urine Clarity Clear, Urine Collection Type Clean catch, Urine Color Yellow, Urine Glucose (UA) 2+H, Urine Ketones 1+H, Urine Leukocyte Esterase Negative, Urine Nitrite Negative, Urine Protein Negative, Urine Specific [place] <=1.005, Urine Urobilinogen 0.2, Urine pH 6.0, White Blood Count 6.52 10/02/16 20:27: Albumin 3.3L, Anion Gap 10.6, Blood Urea Nitrogen 16, Calcium Level 8.3L, Carbon Dioxide Level 26, Chloride Level 100, Creatinine 0.69L, Estimat Glomerular Filtration Rate 158.8, Estimated GFR (Non- 131.3, Glucose Level 217#H, Potassium Level 3.9#, Sodium Level 133#L, Phosphorus Level 3.7 10/03/16 00:10: Albumin 3.2L, Anion Gap 10.6, Blood Urea Nitrogen 16, Calcium Level 8.3L, Carbon Dioxide Level 26, Chloride Level 98, Creatinine 0.62L, Estimat Glomerular Filtration Rate 179.7, Estimated GFR (Non- 148.5, Glucose Level 148#H, Potassium Level 4.8#, Sodium Level 131L, Phosphorus Level 3.9 10/03/16 04:20: Albumin 3.0L, Anion Gap 8.1, Blood Urea Nitrogen 15, Calcium Level 8.2L, Carbon Dioxide Level 30H, Chloride Level 98, Creatinine 0.72L, Estimat Glomerular Filtration Rate 151.2, Estimated GFR (Non- 125.0, Glucose Level 242#H, Potassium Level 3.8#, Sodium Level 132L, Phosphorus Level 3.7 IMAGING: None ASSESSMENT Braulio Sanchez is a 36 year old male admitted from ED 10/02 with DKA in the setting of chronically poorly controlled diabetes mellitus type 1. PLAN * DKA: Resolving. Noted on admit that AG = 9 but there is pseudohyponatremia. When correcting sodium for glucose, AG = 23. IVF and insulin drip per DKA protocol. * Pseudohyponatremia: Resolved. Na 121 on serum chemistry but glucose 950. Na corrected to 135. Monitor trend. * Diabetes Mellitus Type 1, Uncontrolled: Check A1C. Expected to be > 14 which it has been on two other prior admits. Insulin drip per DKA protocol with plan to transition to 70/30 regimen on the basis of cost which has been a challenge for him in the past. * Dehydration: Due to DKA. IVF per DKA protocol. * F/E/N: Clear liquid for now. IVF per DKA protocol. Peripheral IV x 2. Daily weight, I&O. * Prophylaxis: Ambulate * Code Status: Full * Dispo: ICU initially. Transferred to med/surg 10/03. Expected to discharge . CHRONIC ISSUES * Tobacco abuse: nicotine patch, Button Bradder cessation. CHRISTY VITALE MD October 03, 2016 08:09
--- NOTE | 2016-10-03 08:15 | NUR ---
Large DM diet ordered - Dr Pratt in room - accu check 151
[2016-10-03 08:19] VITALS: BP 109/76
[2016-10-03] MEDS ORDERED: DEXTROSE ORAL GEL (GLUTOSE 40%) 15 GM TUBE PO PRN (08:20)
--- NOTE | 2016-10-03 08:20 | NUR ---
IV regular insulin drip DC'd and IV fluids DC'd as ordered
[2016-10-03] MEDS: NICOTINE 21 MG (NICODERM) PATCH TD SCH (08:46)
[2016-10-03] MEDS ORDERED: POLYETHYLENE GLYCOL 17 GM (MIRALAX) PACKET PO PRN (09:00)
[2016-10-03] MEDS ORDERED: DOCUSATE SODIUM 100 MG (COLACE) CAP PO PRN (09:00)
[2016-10-03] MEDS ORDERED: MAGNESIUM HYDROXIDE 80MG/ML (MILK OF MAGNESIA) 30 ML UDC PO PRN (09:00)
[2016-10-03] MEDS ORDERED: CALCIUM CARBONATE CHEWABLE 300 MG (TUMS) TABLET PO PRN (09:50)
--- NOTE | 2016-10-03 10:02 | NUR ---
Condition report to Samanta MORRIS
--- NOTE | 2016-10-03 10:05 | NUR ---
Pt transferred to 318 from ICU via ambulation accompanied by ALEXANDRA Mcclure. Skin warm, dry, intact. Resprs nonlabored, even on RA. Pt c/o back pain rated 8/10. States "I went to the doctor and they said it's probably a pulled muscle". Pt states the shower helps. SL intact. Pt ambulates to shower at this time.
[2016-10-03] MEDS: KETOROLAC 15 MG/ML (TORADOL) 1 ML VIAL IV PRN ×2 (10:34→17:40)
--- NOTE | 2016-10-03 10:35 | NUR ---
PRN Toradol given at this time for c/o back pain. Pt denies other needs.
[2016-10-03] MEDS ORDERED: IBP200T PO ×2 (10:40→18:15)
[2016-10-03] MEDS ORDERED: MULT-517 PO (10:40)
--- NOTE | 2016-10-03 10:46 | NUR ---
Med Rec completed via conversation with patient.
[2016-10-03 11:13] VITALS: BP 102/66
[2016-10-03] MEDS ORDERED: PROMETHAZINE HCL INJ 12.5 MG in SODIUM CHLORIDE 25 ML IV PRN (11:50)
[2016-10-03] MEDS ORDERED: ACETAMINOPHEN 325 MG TAB (TYLENOL) PO PRN (11:50)
[2016-10-03] MEDS ORDERED: MAG HYDROX/AL HYDROX/SIMETH 200-200-20/5 ML (MAG-AL PLUS) 30 ML UDC PO PRN (11:50)
[2016-10-03] MEDS ORDERED: ONDANSETRON 2 MG/ML (Z0FRAN) 2 ML VIAL IV PRN (11:50)
[2016-10-03] MEDS ORDERED: ONDANSETRON 4 MG (ZOFRAN) ORAL DISSOLVE TAB PO PRN (12:00)
[2016-10-03] MEDS: INSULIN LISPRO 1 UNIT/0.01 ML (HUMALOG) DOSE SC SCH ×3 (12:48→21:30)
[2016-10-03 15:23] VITALS: BP 99/60
--- NOTE | 2016-10-03 17:40 | NUR ---
PRN Toradol given at this time for c/o back pain rated 9/10. Pt states "is there any way you can talk to the doctor about getting a different pain medication? This toradol is only working for like an hour. The doctor I saw for the back pain gave me Sulligent and Flexeril.". [place] notified, new orders entered.
[2016-10-03] MEDS ORDERED: DEXTROSE 50% 25 GM/50 ML SYRINGE IV PRN (17:50)
[2016-10-03] MEDS ORDERED: GLUCAGON EMERGENCY 1 MG/KIT IM PRN (17:50)
[2016-10-03] MEDS ORDERED: HUM100VI12 SC (18:15)
[2016-10-03] MEDS ORDERED: CYCL10TA45 PO (18:15)
[2016-10-03] MEDS ORDERED: HYDR-3811 PO (18:15)
[2016-10-03] MEDS: INSULIN NPH/REG 70/30 1 UNIT/0.01 ML (HUMULIN 70/30) DOSE SC SCH (18:17)
[2016-10-03] MEDS: HYDROcodone/APAP 7.5 MG/325 MG (NORCO) TABLET PO PRN ×2 (18:18→22:38)
--- NOTE | 2016-10-03 18:18 | NUR ---
PRN [place] given at this time for c/o 710 back pain. Pt has been pleasant and cooperative this shift. SL intact. Skin warm, dry, intact. Resprs nonlabored, even on RA. Independent in room. Denies needs.
[2016-10-03 19:48] VITALS: BP 123/78
[2016-10-03] MEDS: CYCLOBENZAPRINE 10 MG (FLEXERIL) TAB PO PRN (21:28)
[2016-10-04 00:07] VITALS: BP 115/70
[2016-10-04 04:11] VITALS: BP 124/76
[2016-10-04] MEDS: PANTOPRAZOLE 40 MG (PROTONIX) TAB PO SCH (06:24)
[2016-10-04] MEDS: HYDROcodone/APAP 7.5 MG/325 MG (NORCO) TABLET PO PRN ×4 (06:25→22:28)
--- NOTE | 2016-10-04 06:32 | NUR ---
Patient rests in bed with minimal complaints. PRN Joaquin given x2 this shift, PRN Flexeril given x1. Patient states that this has helped him rest well throughout the night. Morning glucose is 232. Patient without needs at this time.
[2016-10-04 08:00] VITALS: BP 123/66
[2016-10-04] MEDS: INSULIN NPH/REG 70/30 1 UNIT/0.01 ML (HUMULIN 70/30) DOSE SC SCH ×2 (08:59→18:09)
[2016-10-04] MEDS: INSULIN LISPRO 1 UNIT/0.01 ML (HUMALOG) DOSE SC SCH ×5 (09:00→20:47)
[2016-10-04] MEDS: NICOTINE 21 MG (NICODERM) PATCH TD SCH (09:02)
[2016-10-04 12:00] VITALS: BP 128/77
--- NOTE | 2016-10-04 12:45 | NUR ---
PRN [place] given at this time for c/o back pain. Denies other needs.
[2016-10-04] MEDS ORDERED: DEXTROSE 50% 25 GM/50 ML SYRINGE IV PRN (14:15)
[2016-10-04] MEDS ORDERED: DEXTROSE ORAL GEL (GLUTOSE 40%) 15 GM TUBE PO PRN (14:15)
[2016-10-04] MEDS ORDERED: GLUCAGON EMERGENCY 1 MG/KIT IM PRN (14:15)
[2016-10-04 15:58] VITALS: BP 118/77
--- NOTE | 2016-10-04 16:10 | NUR ---
Pt reports feeling like his blood sugar is low. BG at this time is 228. Pt states "well maybe if I'm used to being high, then what you guys consider normal would feel low to me". Agreed with patient. Denies other needs.
--- NOTE | 2016-10-04 18:28 | NUR ---
PRN [place] given at this time for c/o back pain rated 7/10. Denies other needs. Skin warm, dry, intact. Resprs nonlabored, even on RA. Pt up ad lionel in room.
[2016-10-04 19:41] VITALS: BP 121/54
--- NOTE | 2016-10-04 21:23 | NUR ---
Pt up to shower at this time.
[2016-10-04] MEDS: CYCLOBENZAPRINE 10 MG (FLEXERIL) TAB PO PRN (22:28)
[2016-10-05 00:03] VITALS: BP 121/66
[2016-10-05 03:54] VITALS: BP 127/72
[2016-10-05] MEDS: HYDROcodone/APAP 7.5 MG/325 MG (NORCO) TABLET PO PRN ×3 (03:54→12:41)
[2016-10-05] MEDS: PANTOPRAZOLE 40 MG (PROTONIX) TAB PO SCH (05:53)
[2016-10-05] MEDS: INSULIN LISPRO 1 UNIT/0.01 ML (HUMALOG) DOSE SC SCH ×2 (06:10→12:03)
--- NOTE | 2016-10-05 06:11 | NUR ---
Pt rests in short intervals throughout the night. Frequent snacks provided. PRN pain medication provided for lower back pain. SL intact. Resp even and non labored on RA. Independent in room.
[2016-10-05 07:56] VITALS: BP 116/68
--- NOTE | 2016-10-05 08:14 | Discharge Instructions (E) ---
Discharge Instructions Activity Instructions as tolerated Doctor's Appointment make apt with [facility]. give patient phone no. Discharge Diet: Carbohydrate controlled GIO LONGORIA DO October 05, 2016 08:14
[2016-10-05] MEDS: INSULIN NPH/REG 70/30 1 UNIT/0.01 ML (HUMULIN 70/30) DOSE SC SCH ×2 (08:17→12:03)
[2016-10-05] MEDS: NICOTINE 21 MG (NICODERM) PATCH TD SCH (08:17)
[2016-10-05] MEDS ORDERED: HUM100VI12 SC (08:18)
[2016-10-05] MEDS ORDERED: CYCL10TA45 PO (08:18)
--- NOTE | 2016-10-05 08:21 | Discharge Summary (E FT) ---
Discharge Summary (E FT) Admit Date October 02, 2016 at 17:01 Discharge Date October 05, 2016 Admitting Provider Zachary Pratt MD Primary Care Provider Attending Provider Zachary Pratt MD Consulting Provider Hospital Course Summary CC: Hyperglycemia HPI Braulio Sanchez is a 36 year old male with diabetes mellitus type 1 who was admitted from ED 10/02 where he presented again with marked hyperglycemia. He is well known to the service and has prior admissions for uncontrolled diabetes , DKA. Stated he came to ED because his meter kept reading "HI" when he was testing his glucose. CBC was normal. Na 121, K 4.9, Glucose 950. AlkP elevated at 234. UA positive for glucose and ketones. Serum acetone level was trace. He was given NS bolus x 2, 6 units regular IV insulin, and insulin drip was started in ED. He was admitted to ICU for further management of DKA. On arrival to unit, awake, alert, interactive, oriented and appears in no distress. Not tachypneic. Says he noticed since 09/30 that he was getting more thirst, urinating more, and tired more. Has some insulin but is running out at home. Takes 70/30 OTC. No recent signs or symptoms of infection. Has some increased back pain which he attributes to a pulled muscle. At present, is not nauseated and is hungry. I & O Cumulative 10/04/16 10/05/16 Cumulative From/Thru 19:00 07:00 10/02/16 14:42 - 10/05/16 05:54 Intake Total 1670 ml 3841 ml 30682 ml Output Total 1250 ml 3975 ml 83199 ml Balance 420 ml -134 ml 5578 ml Vital Signs Date Time Temp Pulse Resp B/P Pulse Ox O2 Delivery O2 Flow Rate FiO2 10/05/16 07:56 97.9 81 16 116/68 98 Room air 10/05/16 03:54 0.00 He did well during his hospitalization, BS corrected nicely, he was tolerating diet well. No new issues or complaints. Recommended to be compliant with medications and F/U with [facility] GEN: Awake, alert, oriented, NAD at present. HEENT: EOMI, PERRL, dry oral mucosa. Tongue pierced. CV: RRR S1 S2 normal with no murmur LUNGS: CTA B with no R/R/W. ABD: Soft, NT/ND with normal bowel sounds. Tolerates exam well. EXTR: No C/C/E. Normal peripheral pulses. INTEG: No rash. NEURO: No focal motor neuro deficit. Weight: 56 kg Lab-Past 14 Days, 35 Results 10/02/16 14:50: Acetone Level Trace, Alanine Aminotransferase (ALT/SGPT) 34, Albumin 3.2#L, Albumin/Globulin Ratio 1.142, Alkaline Phosphatase 234H, Anion Gap 13.6, Aspartate Amino Transf (AST/SGOT) 21, BUN/Creatinine Ratio 26H, Basophils # ( Auto) 0.0, Basophils (%) (Auto) 1, Blood Urea Nitrogen 16, Calcium Level 8.2L, Calcium/Ionized Calcium Ratio 4.0, Calculated Osmolality 283, Carbon Dioxide Level 23, Chloride Level 89L, Creatinine 0.62L, Eosinophils # (Auto) 0.1, Eosinophils (%) (Auto) 2, Estimat Glomerular Filtration Rate 179.7, Estimated GFR (Non- 148.5, Glucose Level 950*H, Hematocrit 37.10L, Hemoglobin 13.2L, Lymphocytes # (Auto) 1.4, Lymphocytes (%) (Auto) 21, Mean Corpuscular Hemoglobin 30.3, Mean Corpuscular Hemoglobin Concent 35.6, Mean Corpuscular Volume 85, Mean Platelet Volume 10.9H, Monocytes # (Auto) 0.5, Monocytes (%) (Auto) 7, Neutrophils # (Auto) 4.5, Neutrophils (%) (Auto) 69H, Platelet Count 276, Potassium Level 4.9, Red Blood Count 4.36L, Red Cell Distribution Width 12.0, Sodium Level 121L, Total Bilirubin 0.3#, Total Protein 6.0L, Urine Bilirubin Negative, Urine Blood Negative, Urine Clarity Clear, Urine Collection Type Clean catch, Urine Color Yellow, Urine Glucose (UA) 2+H, Urine Ketones 1+H, Urine Leukocyte Esterase Negative, Urine Nitrite Negative, Urine Protein Negative, Urine Specific [place] <=1.005, Urine Urobilinogen 0.2, Urine pH 6.0, White Blood Count 6.52 10/02/16 20:27: Albumin 3.3L, Anion Gap 10.6, Blood Urea Nitrogen 16, Calcium Level 8.3L, Carbon Dioxide Level 26, Chloride Level 100, Creatinine 0.69L, Estimat Glomerular Filtration Rate 158.8, Estimated GFR (Non- 131.3, Glucose Level 217#H, Potassium Level 3.9#, Sodium Level 133#L, Phosphorus Level 3.7 10/03/16 00:10: Albumin 3.2L, Anion Gap 10.6, Blood Urea Nitrogen 16, Calcium Level 8.3L, Carbon Dioxide Level 26, Chloride Level 98, Creatinine 0.62L, Estimat Glomerular Filtration Rate 179.7, Estimated GFR (Non- 148.5, Glucose Level 148#H, Potassium Level 4.8#, Sodium Level 131L, Phosphorus Level 3.9 10/03/16 04:20: Albumin 3.0L, Anion Gap 8.1, Blood Urea Nitrogen 15, Calcium Level 8.2L, Carbon Dioxide Level 30H, Chloride Level 98, Creatinine 0.72L, Estimat Glomerular Filtration Rate 151.2, Estimated GFR (Non- 125.0, Glucose Level 242#H, Potassium Level 3.8#, Sodium Level 132L, Phosphorus Level 3.7 IMAGING: None ASSESSMENT Braulio Sanchez is a 36 year old male admitted from ED 10/02 with DKA in the setting of chronically poorly controlled diabetes mellitus type 1. PLAN * DKA: Resolved . Noted on admit that AG = 9 but there is pseudohyponatremia. When correcting sodium for glucose, AG = 23. IVF and insulin drip per DKA protocol. * Pseudohyponatremia: Resolved. Na 121 on serum chemistry but glucose 950. Na corrected to 135. Monitor trend. * Diabetes Mellitus Type 1, Uncontrolled: Check A1C. Expected to be > 14 which it has been on two other prior admits. Insulin drip per DKA protocol with plan to transition to 70/30 regimen on the basis of cost which has been a challenge for him in the past. * Dehydration: Due to DKA. Dispo: Home today- He will f/u with [facility]. Discussed medication compliance. CHRONIC ISSUES * Tobacco abuse: nicotine patch, [employer] cessation.- requested him to stop smoking Discharge Disposition Home Appt with [facility] within the week New Medications: Cyclobenzaprine HCl (Flexeril) 10 Mg Tablet 10 MG PO BID PRN MUSCLE SPASM #15 TAB Hydrocodone Bit/Acetaminophen (Hydrocodon-Acetaminophen 7.5-325) 1 Each Tablet 1 EA PO Q4H PRN PAIN #10 Ref 0 TAB Insulin NPH/Regular (Humulin 70/30) 100 Unit/1 Ml Vial 45 UNIT SC BID WITH MEALS #1 ML Changed Medications: Ibuprofen (Ibuprofen) 200 Mg Tablet 600 MG PO Q6H PRN PAIN #0 Ref 0 TAB (Changed from: 200 MG; Q4H) Insulin NPH/Regular (Humulin 70/30) 100 Unit/1 Ml Vial 45 UNIT SC BID WITH MEALS #1 Ref 11 ML (Changed from: 30 UNIT) Continued Medications: Acetaminophen (Tylenol) 325 Mg Tablet 650 MG PO Q6H PRN PAIN Ref 0 TAB Cyclobenzaprine HCl (Flexeril) 10 Mg Tablet 10 MG PO BID PRN SPASMS #15 Ref 0 TAB (This prescription has been renewed) Multivitamin (Men's Multi-Vitamin) 1 Each Tablet 1 EACH PO DAILY TAB Follow up Instructions Maintain a diabetic diet Continue home medications Copies to: End of Report . GIO LONGORIA DO October 05, 2016 08:21
[2016-10-05] MEDS ORDERED: NS FLUSH 10 ML PRN IV (10:05)
[2016-10-05] MEDS ORDERED: NS FLUSH 3 ML PRN IV (10:05)
--- NOTE | 2016-10-05 10:30 | NUR ---
Amb in halls. States back pain is a little better. Gait steady.
--- NOTE | 2016-10-05 11:49 | NUR ---
BLOOD SUGAR 460. DR. LONGORIA NOTIFIED. GIVE 12 UNIT HUMALOG WITH SCHEDULED 70/[address] LONGORIA/Franky CHANEY RN
--- NOTE | 2016-10-05 13:19 | NUR ---
DISMISSAL STILL PLANNED PER DR. LONGORIA.
--- NOTE | 2016-10-05 13:19 | NUR ---
BLOOD SUGAR AT THIS TIME PRIOR TO DISCHARGE 360. DR. LONGORIA NOTIFIED.
--- NOTE | 2016-10-05 13:59 | NUR ---
DISMISSED TO HOME PER AMB ACCOMPANIED BY FAMILY AND YONI MORRIS. A/O X4. SKIN W/P/D. RESP UNLABORED.GAIT STEADY.
[2016-10-06] MEDS ORDERED: NS FLUSH 3 ML DAILY IV SCH (09:00)
== END 2016-10-05 14:00 | disposition home or self-care (01) | DRG 639 ==
LOC: EDUNIT# 14:37 → ED 14:38 → ICU 16:59 → UNDOADMIN 16:59 → ICU 17:01 → MED/SURG 10-03 10:42
PROVIDERS: ADMIT Internal Medicine; ATTEND Internal Medicine
DX: E10.10 Type 1 diabetes mellitus with ketoacidosis without coma (principal); E86.0 Dehydration; G89.29 Other chronic pain; M54.9 Dorsalgia, unspecified; F17.200 Nicotine dependence, unspecified, uncomplicated; Z91.14 Patient's other noncompliance with medication regimen; Z79.4 Long term (current) use of insulin
CPT/HCPCS: 36415; 80053; 80069; 81003; 82009; 83036; 85025; 93005; 96361; 96374; 99283